=== PATIENT | male | born 1950 | race Caucasian/White ===

== ENCOUNTER 2023-04-21 17:07 | Observation (INO) | payer OTHER, SELFPAY ==
[2023-04-21 12:25] VITALS: BP 94/68
--- NOTE | 2023-04-21 13:31 | ED.GENMED ---
History of Present Illness
General
Chief Complaint: Weakness
Time Seen by Provider: 04/21/23 12:34
Travel History
Have you had any contact with someone who has COVID-19?: No
Do you have any symptoms of coronavirus? Fever > 100 degrees, chills, cough, shortness of breath, sore throat, loss of taste or smell, muscle aches, or headache?: No
History of Present Illness
History of Present Illness:
72-year-old male with history of insulin-dependent diabetes and dementia presents to the emergency department for evaluation of progressive weakness and lethargy over the past week. According to his sons his decline has been ongoing for the past
month but in the past 7 days he has been unable to stand or walk, has been sleeping on the floor. Patient offers no acute complaints. According to the his appetite has been otherwise normal.
Review of Systems
Review of Systems
Allergies reviewed?: Yes
All Other Systems: ROS reviewed and negative except as documented in HPI and ROS
Phy Exam
Physical Exam
Physical Exam:
GEN: Thin and cachectic male, no immediate distress
HEENT: Oral mucosa moist, no scleral icterus
Cardiac: Regular rate and rhythm
Lung: No respiratory distress, no tachypnea
MSK: No gross deformity. Stage I decubitus on the right greater trochanter
Skin: Good color, no pallor or jaundice, no rashes
Neuro: Alert, profoundly disoriented, follows commands
Psych: Calm, cooperative
Course
Orders/Labs/Results
Orders:
Orders
04/21/23 13:34
Lidocaine 2% [Lidocaine Uro-Jet 2%] [address] syringe [address]
04/21/23 13:45
Complete Blood Count/With Diff Urgent
Comprehensive Metabolic Panel Urgent
Glycohemoglobin (HgbA1c) Urgent
04/21/23 13:55
Urinalysis Reflex To Culture Urgent
Date Specimen was Collected: 04/21/23
Time Specimen was Collected: 13:55
Urine Microscopic Reflex Cult Urgent
Urine Culture Urgent
BOBBY Source: U
Specimen Description:
Date Specimen was Collected: 04/21/23
Time Specimen was Collected: 13:55
04/21/23 14:45
Fosfomycin [Monurol] 3 gm PO ONCE ONE
04/21/23 Dinner
Regular
At Your Request: Full Participation
Does patient need a safe tray?: Yes
04/21/23 15:32
Bedside Glucose- Treatment ONCE
04/21/23 16:32
Case Management Consult ONCE
Case Management Consult: Fdc Placement
04/21/23 16:51
Add On- LAB Routine
Tests Added?: hgba1c
Abnormal Lab Results
04/21/23 04/21/23 04/21/23
13:45 13:55 15:43
RBC 4.41 L 10^6/uL
(4.70-6.10)
Hct 36.5 L %
(39.0-52.0)
Absolute Monos (auto) 0.7 H 10^3/uL
(0.1-0.6)
Lymphocytes % 18.3 L %
(20.5-51.1)
Sodium 131 L mmol/L
(135-145)
Chloride 96 L mmol/L
(98-107)
Creatinine 0.4 L mg/dL
(0.7-1.3)
Ur Occult Blood Reflex Trace A
(Negative)
Urine Nitrite (Reflex) Positive A
(Negative)
Leukocyte Esterase Rfl 2+ A
(Negative)
Urine WBC (Reflex) 11-15 A /HPF
(0-5)
Urine Bacteria (Reflex) Moderate A
(Negative)
Urine Yeast Moderate A
(Negative)
POC Glucose 109 H mg/dl
(70-99)
04/21/23 13:45
04/21/23 13:45
Vital Signs
Initial and Last Documented VS:
Initial Vital Signs
Pulse Resp BP
90 16 94/68
04/21/23 12:25 04/21/23 12:25 04/21/23 12:25
Last Documented Vital Signs
Pulse Resp BP Pulse Ox
88 17 123/90 100
04/21/23 16:45 04/21/23 16:45 04/21/23 14:05 04/21/23 16:45
MDM/Problems Addressed
MDM/Problems Addressed:
Patient's presentation is most likely due to progressive cognitive decline in the setting of dementia. Straight cath urinalysis is suspicious for UTI. The patient was a difficult IV placement and essentially refused further IV access, given that
he is not septic he is suitable for oral management. After lengthy discussion with the family he is not suitable for discharge to home given his profound functional decline and lack of resources for the spouse or first-floor living capability.
Case management evaluated the patient and will assist with placement at the time he is medically discharge. Will admit to the hospitalist service for further management given his profound functional weakness
*Critical Care Note
Total Time (30-74mins, 75-104mins- exclusive of procedures): Not Applicable
ED Attending Note
-
Portions of this chart may have been created with voice recognition software.� Occasional wrong word or��sound alike� substitutions may have occurred due to the inherent limitations of voice recognition software.
Discharge Plan
Departure
Patient Disposition: Admit
Date of Disposition: 04/21/23
Time of Disposition: 16:26
Admit to: Med/Surg
Presentation/result/management discussed w/ accepting MD/DO: Hospitalist
Discharge Problem:
Urinary tract infection, Ambulatory dysfunction, Cognitive and behavioral changes
Prescriptions:
No Action
Theragen Tablet
1 tab PO DAILY
aspirin 81 mg Tablet,Delayed Release (Dr/Ec)
81 mg PO DAILY
insulin glargine [Lantus Solostar U-100 Insulin] 100 unit/mL (3 mL) Insulin Pen
10 unit SC HS
Prevagen
1 cap PO DAILY
insulin aspart U-100 [Novolog FlexPen U-100 Insulin] 100 unit/mL (3 mL) insulin pen
8 unit SC AC
metformin 1,000 mg Tablet
1,000 mg PO BID@0800,1700 Qty: 60 0RF
Referrals:
Salomon Diaz MD [Family Provider] -
Interventions
Interventions:
*Risk Screen - Suicide Last Done: 04/21/23 12:50
*General Assessment Last Done: 04/21/23 12:25
*Neglect/Abuse Screening Last Done: 04/21/23 12:50
ED- Fall Risk Assessment Last Done: 04/21/23 13:02
*ED COVID-19 Vaccine History Last Done: 04/21/23 12:25
ED- Cardiac Assessment Last Done: 04/21/23 14:04
ED- Neurological Assessment Last Done: 04/21/23 13:01
ED- Pulmonary Assessment Last Done: 04/21/23 13:02
[2023-04-21 13:55] LABS: % Basophils 0.5 % (0-2); % Eosinophils 1.4 % (0-6); % Immature Granulocytes 0.5 % (0-0.5); % Lymphocytes 18.3 % (20.5-51.1); % Monocytes 7.5 % (1.7-9.3); % Neutrophils 71.8 % (42.2-75.2); Absolute Eosinophils 0.1 10^3/uL (0-0.7); Absolute Lymphocytes 1.6 10^3/uL (1.2-3.4); Absolute Monocytes 0.7 10^3/uL (0.1-0.6); Absolute Neutrophils 6.2 10^3/uL (1.4-6.5); Hematocrit 36.5 % (39.0-52.0); Hemoglobin 13.1 g/dL (13.0-18.0); Mean Corp Hgb Conc. 35.9 g/dL (33.0-37.0); Mean Corpuscular Hgb 29.7 pg (27.0-31.0); Mean Corpuscular Volume 82.8 fL (80.0-94.0); Mean Platelet Volume 9.6 fL (7.4-10.4); Nucleated Red Blood Cells % 0 % (-); Platelet Count 393 10^3/uL (130-400); Red Blood Cell Count 4.41 10^6/uL (4.70-6.10); Red Cell Dist. Width 12.4 % (11.5-14.5); White Blood Cell Count 8.7 10^3/uL (4.8-10.8)
[2023-04-21 14:05] VITALS: BP 123/90
[2023-04-21 14:05] LABS: Urine Albumin Negative (Neg - Trace); Urine Bilirubin Negative (Negative); Urine Character Clear (Clear); Urine Color Yellow; Urine Glucose Negative (Negative); Urine Ketone Negative (Negative); Urine Leukocyte 2+ (Negative); Urine Nitrite Positive (Negative); Urine Occult Blood Trace (Negative); Urine Urobilinogen Negative (Neg - 1+)
[2023-04-21 14:10] LABS: ALT (SGPT) 31 U/L (0-50); AST (SGOT) 30 U/L (17-59); Albumin 3.8 g/dl (3.5-5.0); Alkaline Phosphatase 94 U/L (38-126); Blood Urea Nitrogen 9 mg/dl (9-20); Calcium 9.6 mg/dl (8.4-10.2); Carbon Dioxide 27 mmol/L (22-30); Chloride 96 mmol/L (98-107); Glucose 97 mg/dl (70-99); Potassium 4.2 mmol/L (3.5-5.1); Sodium 131 mmol/L (135-145); Total Bilirubin 0.5 mg/dl (0.2-1.3); eGFR > 60.00
[2023-04-21 14:47] LABS: Urine Yeast Moderate (Negative)
[2023-04-21 14:50] LABS: Urine Bacteria Moderate (Negative); Urine Red Blood Cell 0-2 /HPF (0-2)
[2023-04-21] MEDS: MONUROL 3 GM PO (14:57)
[2023-04-21 15:44] LABS: Glucose - Point of Care 109 mg/dl (70-99)
--- NOTE | 2023-04-21 16:28 | CM ---
Cm was consulted for discharge planning. CM met with patient, , daughter and sons in room. Patient lives with in a colonial style home. Patient does not have VN or a history of SNF. Patient is active with his PCP. As per daughter and ,
patient sleeps on the floor due to back pain and sleeps with him on the floor. Family has noticed that patient cannot get up from the floor and recently requires his two sons to pick him up off the floor and transport to ER. Patient's sleeps on
the first floor but has not had access to shower for some time as he no longer navigates the stairs. Patient's stated that she feels that he can be discharged home. CM advised that due to patient's weakness and history of deconditioning a home
discharge may not be safe. CM discussed risks of falling.
Patient, family and are in agreement with hospitalization and discharge planning. CM will await PT evaluation for further discharge planning efforts.
PLAN: home with VN vs. SNF.
--- NOTE | 2023-04-21 17:01 | HPS.HSE ---
Addendum entered and electronically signed by Preston Christopher DO 04/21/23 17:21:
Patient seen and examined and discussed with EBONY Reagan and I agree with her note.
Gen-awake, alert, confused, not oriented
HEENT-NC, AT, anicteric, clear oral mm
Neck-supple
CV-reg, no M, +S1/S2
Lungs-clear B/L
Abd-soft, NT, ND
Ext-no edema
Musculoskeletal-no cyanosis, clubbing
Skin-warm and dry
Neuro-grossly non-focal
Psych-calm, cooperative
Failure to thrive -due to progression of underlying dementia. Family states that he is gotten progressively weaker over the past few weeks, sleeping on the floor. Unable to get up on his own. Has developed decubital wounds. Consult wound care.
Family requesting placement. Case management aware.
Advanced dementia -likely Alzheimer's type. Rule out vascular dementia. Given the progression and failure to thrive, hospice should be considered. Will discuss with family.
History of stroke -CT head from April 2022 showed old 3 cm left occipital infarct. Moderate diffuse cortical atrophy with mild nonspecific white matter changes.
Hyponatremia -sodium 131. Possibly related to hypovolemia. Patient refused IV catheter placement in the emergency room.
DM2 without hyperglycemia -glucose 97 today. Would use low resistance insulin scale, resume metformin. Not a good long-term insulin candidate given his advanced dementia.
Pyuria -unclear if true UTI. Patient has no symptoms, but is also not reliable given his dementia. Emergency room administered a dose of fosfomycin. Urine culture sent.
DNR
Original Note:
Family Physician
-
Family Physician: Orlin Diaz
Chief Complaint
-
Weakness
History of Present Illness
Pt is a 72yo M w/ a PMH of DM-II and Dementia who is presenting to the ED c/o weakness. Patient is a limited historian and presents with his and two sons. The patient has become progressively more weak since he was diagnosed with dementia 2
years ago. The patient becomes agitated and combative with no specific triggers per sons and . The patient's advises that he is always hungry and will eat anything. She also advises that he sleeps on the floor as he's unable to get up the
stairs. Family is no longer able to care for patient at home.
Medical History
Past Medical History
Past Medical History: Reports Other
Additional Past Medical History:
Diabetes Mellitus, Type II
Past Surgical History: Reports None
Social History
Tobacco: Former Smoker (Quit about 2 years)
Living: With Family
Family History
Family History: Unable to Obtain
Allergies / Home Medications
Allergies reflects when Allergies were last updated in [employer].
Home Medications with original date entered in [employer]
Allergy/Medication List:
Allergies
Allergy/AdvReac Type Severity Reaction Status Date / Time
No Known Allergies Allergy Unverified 04/21/23 12:30
Home Medications
metformin 1,000 mg tablet 1,000 mg PO BID@0800,1700 Diabetes #60 tabs 04/20/22
Prevagen 1 cap PO DAILY 04/21/23
aspirin 81 mg tablet,delayed release 81 mg PO DAILY 04/21/23
insulin aspart U-100 100 unit/mL (3 mL) subcutaneous pen (Novolog FlexPen U-100 Insulin aspart) 8 unit SC AC Diabetes 04/21/23
insulin glargine 100 unit/mL (3 mL) subcutaneous pen (Lantus Solostar U-100 Insulin) 10 unit SC HS 04/21/23
therapeutic multivitamin 1 tab PO DAILY 04/21/23
Review of Systems
-
Unable to obtain full review of systems at this time due to: Dementia
Physical Exam
Vital Signs
Vital Signs
Pulse Resp BP Pulse Ox
88 17 123/90 100
04/21/23 16:45 04/21/23 16:45 04/21/23 14:05 04/21/23 16:45
Physical Exam
General: Comfortable, Conversant and Appears Chronically Ill
HEENT: Anicteric and Other (Mucous membranes are slightly dry)
Respiratory: Clear and Non Labored Respirations
Cardiac: S1/S2 and Regular Rhythm
GI: Soft and Non Tender
Musculoskeletal: No Clubbing and No Cyanosis
Skin: Warm and Dry
Neuro: Awake and Alert
Psych: Calm, Confused and Other (ED staffs notes patient became agitated when attempting to get blood work and place IV)
Laboratory Results
-
04/21/23 13:45
04/21/23 13:45
Laboratory Results
Total Bilirubin 0.5 mg/dl (0.2-1.3) 04/21/23 13:45
AST 30 U/L (17-59) 04/21/23 13:45
ALT 31 U/L (0-50) 04/21/23 13:45
Alkaline Phosphatase 94 U/L (38-126) 04/21/23 13:45
Data Reviewed
-
Lab Data: Labs Reviewed by me
Impression/Plan
-
Weakness, likely related to progression of illness
-Family is unable to take care of patient at home
-Consult PT/OT
-Consult Case Management for discharge planning/placement
Abnormal Urinalysis, possible UTI
-Patient received Fosfomycin in ED
-Await urine culture
Dementia, unknown type
-Monitor for mood/behavior changes during hospitalization
Diabetes Mellitus, Type II
-Hold insulin for now
-Continue metformin
-Monitor sugars if patient will allow. Coverage insulin ordered
DVT proph: SCDs
Code Status: DNR
[2023-04-21 17:20] VITALS: BP 122/79
[2023-04-21 17:54] LABS: Glucose - Point of Care 180 mg/dl (70-99)
--- NOTE | 2023-04-21 18:25 | PTCARENOTE ---
pt admitted to 2N from the ED. pt is agitated at times and aaox1. this nurse and nurse layo applied b/l heel foams, b/l knee foams to prevent skin breakdown. pt has a stage two on right hip and a stage 1 on buttock. see wound notes on admission for
proper charting in worklist. pt is grossly incontinent of urine and incontinent of bowel. agitation increased over last week as well as incontinence due to uti. 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
was walking. pt's states that he does well with finger foods but may need help with things that require utensils. this nurse help the patient eat pudding due to him placing his nose in the cup trying to feed himself. pt is on a bed alarm and
was placed in 2134 so that he is close to nursing station. pt has no IV access. sugar check noted a 180 sugar. pt has no trouble swallowing pills per pt's . son and are at the bedside at this time.
[2023-04-21 18:26] VITALS: BP 150/80
[2023-04-21 18:27] VITALS: BMI 21.8
[2023-04-21 22:17] LABS: Glucose - Point of Care 158 mg/dl (70-99)
[2023-04-21 23:35] VITALS: BP 162/86
[2023-04-22 07:30] VITALS: BP 106/69
[2023-04-22 09:18] LABS: Glucose - Point of Care 132 mg/dl (70-99)
[2023-04-22] MEDS: GLUCOPHAGE 1000 MG PO ×2 (09:22→17:27)
[2023-04-22] MEDS: NOVOLOG FLEXPEN-LOW RESISTANCE SC ×2 (09:22→17:27)
--- NOTE | 2023-04-22 09:43 | CM ---
Reviewed the chart notes and spoke with the patient and his son at the bedside. LOUISE letter provided and explained. The patient had no questions with regards to the letter.
Per son, family is interested in SNF/rehab prior to transitioning back to home. List is are NHs provided for review. Precert will be required. Awaiting PT/OT evaluation. CM continues to be available to patient/family and is monitoring medical
plan for needs at discharge.
Plan: Discharge to SNF/rehab once bed found and precert obtained.
--- NOTE | 2023-04-22 10:33 | W.PN.HOSP.TC ---
Today's Communication/Plan
-
TSH, B12, folic acid
Hemoglobin A1c
PT/OT
Discharge planning
Assessment / Plan
Assessment / Plan
Gen-awake, alert, NAD
HEENT-NC, AT, anicteric, clear oral mm
Neck-supple
CV-reg, no M, +S1/S2
Lungs-clear B/L
Abd-soft, NT, ND
Ext-no edema
Musculoskeletal-no cyanosis, clubbing
Skin-warm and dry
Neuro-grossly non-focal
Psych-calm, cooperative
Failure to thrive -due to progression of underlying dementia.� Family states that he is gotten progressively weaker over the past few weeks, sleeping on the floor.� Unable to get up on his own.� Has developed decubital wounds.� Consult wound care.
Family requesting placement.� Case management aware.
Advanced dementia -likely Alzheimer's type.� Rule out vascular dementia.� Given the progression and failure to thrive, hospice should be considered.� I mentioned to family at the bedside this morning regarding hospice, encouraged them to speak
further with PCP.
History of stroke -CT head from April 2022 showed old 3 cm left occipital infarct.� Moderate diffuse cortical atrophy with mild nonspecific white matter changes.
Hyponatremia -sodium 131.� Possibly related to hypovolemia.� Patient refused IV catheter placement in the emergency room.
DM2 without hyperglycemia -glucose 132 this morning.� Would use low resistance insulin scale, resume metformin.� Not a good long-term insulin candidate given his advanced dementia.
Pyuria -doubt UTI.� Patient has no symptoms, but is also not reliable given his dementia.� Emergency room administered a dose of fosfomycin.� Urine culture shows 50,000 CFU per mL Streptococcus species
DNR
Dispo - plan to discharge to SNF, likely by Monday. Case management and family aware.
Anticipated Discharge: 24 - 48 hours
Subjective/Interval History
-
Date of Service: April 22, 2023
Patient seen and examined. Family at the bedside. No complaints.
Objective Data
-
Vital Signs:
Vital Signs
Temp Pulse Resp BP Pulse Ox
97.2 F 80 16 106/69 97
04/22/23 07:30 04/22/23 07:30 04/22/23 07:30 04/22/23 07:30 04/22/23 07:30
I&O
04/21/23 04/22/23 04/23/23
06:59 06:59 06:59
Intake Total 180 / 180 720 / 720
Balance 180 / 180 720 / 720
Review of Systems
-
Unable to obtain full review of systems at this time due to: Dementia
History Source: Patient
All other systems: Reviewed and negative
[2023-04-22 10:48] VITALS: BP 139/65
[2023-04-22 11:00] VITALS: BP 139/65; PULSE 82
[2023-04-22] MEDS: TYLENOL 650 MG PO ×3 (11:01→22:50)
[2023-04-22 11:25] LABS: Glycohemoglobin (HgbA1c) 6.5 % (4.0-5.6)
[2023-04-22 12:53] LABS: Glucose - Point of Care 318 mg/dl (70-99)
[2023-04-22] MEDS: NOVOLOG FLEXPEN-LOW RESISTANCE 4 UNITS SC (13:08)
[2023-04-22 16:19] VITALS: BP 122/66
[2023-04-22 17:00] LABS: Glucose - Point of Care 107 mg/dl (70-99)
[2023-04-22] MEDS: NOVOLOG FLEXPEN 4 UNITS SC (17:27)
--- NOTE | 2023-04-22 18:26 | PTCARENOTE ---
pt had small episodes of agitation, cursing at staff, but not hitting, easily redirected. his posture was ridged, grimacing at times, bitting his fingers, per son he has a bad back and an old L5 fracture, unable to rate his pain or verbalize his
pain so non verbal pain scale was used to treat him. Does well with finger food, does not want to be helped with eating, wants to manage himself. Family at bedside.
[2023-04-22 22:26] LABS: Glucose - Point of Care 123 mg/dl (70-99)
[2023-04-22] MEDS: LANTUS 0.0500000000000000028 UNITS SC (22:29)
[2023-04-22 23:20] VITALS: BP 131/71
[2023-04-23] MEDS: TYLENOL 650 MG PO ×3 (03:38→17:23)
[2023-04-23 07:10] VITALS: BP 115/72
[2023-04-23 08:12] LABS: Glucose - Point of Care 116 mg/dl (70-99)
[2023-04-23] MEDS: NOVOLOG FLEXPEN-LOW RESISTANCE SC ×3 (09:24→17:14)
[2023-04-23] MEDS: GLUCOPHAGE 1000 MG PO ×2 (09:26→17:23)
[2023-04-23] MEDS: NOVOLOG FLEXPEN 4 UNITS SC ×3 (09:27→17:24)
--- NOTE | 2023-04-23 11:05 | W.PN.HOSP.TC ---
Today's Communication/Plan
-
Await placement
Assessment / Plan
Assessment / Plan
Gen-awake, alert, NAD
HEENT-NC, AT, anicteric, clear oral mm
Neck-supple
CV-reg, no M, +S1/S2
Lungs-clear B/L
Abd-soft, NT, ND
Ext-no edema
Musculoskeletal-no cyanosis, clubbing
Skin-warm and dry
Neuro-grossly non-focal
Psych-calm, cooperative
Failure to thrive -due to progression of underlying dementia.� Family states that he is gotten progressively weaker over the past few weeks, sleeping on the floor.� Unable to get up on his own.� Has developed decubital wounds.� Consult wound care.
Family requesting placement.� Case management aware.
Advanced dementia -likely Alzheimer's type.� Rule out vascular dementia.� Given the progression and failure to thrive, hospice should be considered.� I mentioned to family at the bedside this morning regarding hospice, encouraged them to speak
further with PCP.
History of stroke -CT head from April 2022 showed old 3 cm left occipital infarct.� Moderate diffuse cortical atrophy with mild nonspecific white matter changes.
Hyponatremia -sodium 131.� Possibly related to hypovolemia.� Patient refused IV catheter placement in the emergency room. TSH pending.
DM2 without hyperglycemia -glucose 116 this morning.� Would use low resistance insulin scale, resume metformin.� Not a good long-term insulin candidate given his advanced dementia. Currently on Lantus 5 units at bedtime, NovoLog 4 units AC.
Pyuria -doubt UTI.� Patient has no symptoms, but is also not reliable given his dementia.� Emergency room administered a dose of fosfomycin.� Urine culture shows 50,000 CFU per mL Streptococcus species
DNR
Dispo - plan to discharge to SNF, likely by Monday. Case management and family aware.
Anticipated Discharge: Within 24 hours
Subjective/Interval History
-
Date of Service: April 23, 2023
Patient seen and examined. at the bedside. No complaints.
Objective Data
-
Vital Signs:
Vital Signs
Temp Pulse Resp BP Pulse Ox
97.5 F 82 18 115/72 100
04/23/23 07:10 04/23/23 07:10 04/23/23 07:10 04/23/23 07:10 04/23/23 07:10
I&O
04/22/23 04/23/23 04/24/23
06:59 06:59 06:59
Intake Total 180 / 180 1560 / 1560
Balance 180 / 180 1560 / 1560
Review of Systems
-
Unable to obtain full review of systems at this time due to: Dementia
History Source: Patient
All other systems: Reviewed and negative
[2023-04-23 11:52] LABS: TSH 2.35 uIU/ml (0.47-4.68)
[2023-04-23 12:11] LABS: Vitamin B12 923 pg/ml (239-931)
[2023-04-23 12:31] LABS: Glucose - Point of Care 121 mg/dl (70-99)
[2023-04-23 15:00] VITALS: BP 124/61
[2023-04-23 17:11] LABS: Glucose - Point of Care 130 mg/dl (70-99)
--- NOTE | 2023-04-23 18:50 | W.PN.UPDATE ---
Update Note
Progress Note Update
Addendum
Nurse asked for medicine to help with agitation. Patient used Diazepam 10 mg at home in the past. I reached out to Dr. Christopher. WIll give one time dose 5 mg of Diazepam.
[2023-04-23] MEDS: VALIUM 5 MG PO (19:16)
--- NOTE | 2023-04-23 19:19 | PTCARENOTE ---
pt started with agitation after dinner, trying to climb out of bed, yelling at staff cursing, yelling at his family members as well, per family he used to take 10 mg of Diazepam unsure of why it was stopped, reached out to cross coverage and 5 mg of
Diazepam PO was ordered and given. Son at bedside and unable to calm down his father, pt has NKDA and no IV access.
[2023-04-23 21:19] LABS: Glucose - Point of Care 120 mg/dl (70-99)
[2023-04-23] MEDS: LANTUS 0.0500000000000000028 UNITS SC (21:36)
[2023-04-23 23:10] VITALS: BP 137/79
[2023-04-24 07:20] VITALS: BP 131/74
[2023-04-24 07:59] LABS: Glucose - Point of Care 96 mg/dl (70-99)
[2023-04-24] MEDS: NOVOLOG FLEXPEN-LOW RESISTANCE SC ×2 (08:22→16:24)
--- NOTE | 2023-04-24 09:30 | WOUNDNOTE ---
[facility] RN note: Patient admitted with weakness, failure to thrive, sleeping on floor d/t cannot climb the stairs. Patient's family cannot take care of him any longer. Patient is .
See H&P for complete history.
PMH: dementia, DM, skin cancer.
Wound Location and type/assessment: Patient admitted with: R hip healing stage 2 pressure injury. Resolving small stage 1 sacral pressure injury. L hip blanchable mild red. L buttocks with small red area. R lateral knee dry abrasion. L heel
blanchable red.
Appetite: good.
Pressure redistribution devices in place: [employer] Accumax. Patient does move in bed but needs assistance to completely turn in bed. He moves legs independently.
Plan: Patient incontinent of urine. Connie care given and patient turned with help from PCT Vijay. Silicone foam changed on R hip and sacrum. Silicone foam applied to L lateral knee. Protective foam applied to heels.
Will confirm orders with hospitalist and discussed with ROOSEVELT Steven.
Updated care plan and will follow as needed.
--- NOTE | 2023-04-24 09:32 | WOUNDNOTE ---
[facility] RN note: Patient admitted with weakness, failure to thrive, sleeping on floor d/t cannot climb the stairs. Patient's family cannot take care of him any longer. Patient is .
See H&P for complete history.
PMH: dementia, DM, skin cancer.
Wound Location and type/assessment: Patient admitted with: R hip healing stage 2 pressure injury. Resolving small stage 1 sacral pressure injury. L hip blanchable mild red. L buttocks with small red area. R lateral knee dry abrasion. L heel
blanchable red.
Appetite: good.
Pressure redistribution devices in place:
Plan:
Will confirm orders with hospitalist and update nurse.
Updated care plan and will follow as needed.
Note to case management of equipment requested for discharge:
Recommend follow up at wound care center upon discharge.
[2023-04-24] MEDS: GLUCOPHAGE 1000 MG PO ×2 (10:13→16:28)
[2023-04-24] MEDS: NOVOLOG FLEXPEN 4 UNITS SC ×3 (10:14→16:28)
--- NOTE | 2023-04-24 10:57 | W.PN.HOSP.TC ---
Today's Communication/Plan
-
Monitor sugars
Psych eval
Ongoing placement
Assessment / Plan
Assessment / Plan
Gen-awake, NAD
HEENT-NC, AT, anicteric, clear oral mucosa,
Neck-supple
CV-reg, no M, +S1/S2
Lungs-clear B/L
Abd-soft, NT, ND
Ext-no edema
Musculoskeletal-no cyanosis, clubbing
Skin-warm and dry
Neuro-grossly non-focal, apparent dementia
Psych-calm, cooperative
Failure to thrive -due to progression of underlying dementia.� Family states that he is gotten progressively weaker over the past few weeks, sleeping on the floor.� Unable to get up on his own.� Has developed decubital wounds.� Consult wound care.
Family requesting placement.� Case management aware.
Advanced dementia -likely Alzheimer's type.� Rule out vascular dementia.� Intermittent agitation with behavioral disturbances. Psych consulted.
History of stroke -CT head from April 2022 showed old 3 cm left occipital infarct.� Moderate diffuse cortical atrophy with mild nonspecific white matter changes.
Hyponatremia -sodium 131.� Possibly related to hypovolemia.� Patient refused IV catheter placement in the emergency room. TSH normal.
DM2 without hyperglycemia -glucose 96 this morning.� Would use low resistance insulin scale, resume metformin.� Not a good long-term insulin candidate given his advanced dementia. Currently on Lantus 5 units at bedtime, NovoLog 4 units AC.
Pyuria -doubt UTI.� Patient has no symptoms, but is also not reliable given his dementia.� Emergency room administered a dose of fosfomycin.� Urine culture shows 50,000 CFU per mL Streptococcus species
DNR
Dispo -await placement to SNF. Psych evaluation.
Anticipated Discharge: Within 24 hours
Subjective/Interval History
-
Date of Service: April 24, 2023
Remains with intermittent agitation
yesterday required diazepam
No overnight events
Objective Data
-
Vital Signs:
Vital Signs
Temp Pulse Resp BP Pulse Ox
97.9 F 87 16 131/74 100
04/24/23 07:20 04/24/23 07:20 04/24/23 07:20 04/24/23 07:20 04/24/23 07:20
I&O
04/23/23 04/24/23 04/25/23
06:59 06:59 06:59
Intake Total 1560 / 1560 1440 / 1440
Balance 1560 / 1560 1440 / 1440
[2023-04-24 11:33] LABS: Folate > 20.0 ng/ml (2.76-20)
[2023-04-24 12:26] VITALS: BP 132/71; PULSE 95
[2023-04-24 12:34] LABS: Glucose - Point of Care 216 mg/dl (70-99)
[2023-04-24] MEDS: NOVOLOG FLEXPEN-LOW RESISTANCE 2 UNITS SC (13:34)
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
[2023-04-24 15:20] VITALS: BP 162/99
--- NOTE | 2023-04-24 16:09 | CM ---
Reviewed the chart notes and spoke with the spouse and sons at the bedside. Updated that [facility] and [facility] with no beds. [facility] reviewing. CM continues to be available to patient/family and is monitoring medical plan for needs at
discharge.
Plan: Discharge to SNF once bed found and precert obtained. May need to send more referrals.
[2023-04-24 16:21] LABS: Glucose - Point of Care 149 mg/dl (70-99)
[2023-04-24] MEDS: VALIUM 5 MG PO (17:24)
[2023-04-24] MEDS: ATIVAN 0.5 MG IV (18:36)
[2023-04-24] MEDS: NSS (PRESERVATIVE FREE) 0.25 ML IV (18:37)
[2023-04-24 22:17] LABS: Glucose - Point of Care 89 mg/dl (70-99)
[2023-04-24] MEDS: LANTUS 0.0500000000000000028 UNITS SC (22:17)
[2023-04-24 23:31] VITALS: BP 137/79
[2023-04-25 07:05] LABS: Glucose - Point of Care 93 mg/dl (70-99)
[2023-04-25 08:28] VITALS: BP 109/57
[2023-04-25] MEDS: NOVOLOG FLEXPEN-LOW RESISTANCE SC ×3 (09:42→17:15)
[2023-04-25] MEDS: NOVOLOG FLEXPEN 4 UNITS SC ×3 (09:44→17:15)
[2023-04-25] MEDS: GLUCOPHAGE 1000 MG PO ×2 (09:45→17:16)
[2023-04-25] MEDS: VALIUM 5 MG PO (09:46)
--- NOTE | 2023-04-25 10:28 | W.PN.HOSP.TC ---
Today's Communication/Plan
-
Valium bid
monitor mentation
await placement.
Assessment / Plan
Assessment / Plan
Gen-awake, NAD
HEENT-NC, AT, anicteric, clear oral mucosa,
Neck-supple
CV-reg, no M, +S1/S2
Lungs-clear B/L
Abd-soft, NT, ND
Ext-no edema
Musculoskeletal-no cyanosis, clubbing
Skin-warm and dry
Neuro-grossly non-focal, apparent dementia
Psych-calm, cooperative
Failure to thrive -due to progression of underlying dementia.� Family states that he is gotten progressively weaker over the past few weeks, sleeping on the floor.� Unable to get up on his own.� Has developed decubital wounds.� Consult wound care.
Family requesting placement.� Case management aware.
Advanced dementia -likely Alzheimer's vs. vascular dementia.� Intermittent agitation with behavioral disturbances. Psych consulted. Valium 5mg BID started.
History of stroke -CT head from April 2022 showed old 3 cm left occipital infarct.� Moderate diffuse cortical atrophy with mild nonspecific white matter changes.
Hyponatremia -sodium 131.� Possibly related to hypovolemia.� TSH normal.
DM2 without hyperglycemia -glucose 93 this morning.� Would use low resistance insulin scale, resume metformin.� Currently on Lantus 5 units at bedtime, NovoLog 4 units AC.
Pyuria -doubt UTI.� Patient has no symptoms, but is also not reliable given his dementia.� Emergency room administered a dose of fosfomycin.� Urine culture shows 50,000 CFU per mL Streptococcus species
R hip stage PI-POA
Small stage 1 sacral PI-POA
DNR
d/w with son at bedside.
Dispo -await placement to SNF.
Anticipated Discharge: Today
Subjective/Interval History
-
Date of Service: April 25, 2023
calm this morning
son at bedside agrees
finished breakfast
Objective Data
-
Vital Signs:
Vital Signs
Temp Pulse Resp BP Pulse Ox
94.5 F L 75 16 109/57 100
04/25/23 08:28 04/25/23 08:28 04/25/23 08:28 04/25/23 08:28 04/25/23 08:28
I&O
04/24/23 04/25/23 04/26/23
06:59 06:59 06:59
Intake Total 1440 / 1440 1100 / 1100
Balance 1440 / 1440 1100 / 1100
[2023-04-25] MEDS: ASPIR LOW (ENTERIC COATED) 81 MG PO (11:16)
[2023-04-25 11:26] LABS: Glucose - Point of Care 134 mg/dl (70-99)
--- NOTE | 2023-04-25 13:37 | W.PN.UPDATE ---
Update Note
Progress Note Update
Pt seen, with son present, reviewed with nursing staff. Pt was agitated last pm, trying to get out of bed, was given Ativan 0.5 mg IV. Pt sleepy off an on, awake and calm today (early afternoon). Pt eating okay. Pt is not ambulating
independently.
Imp: � Dementia, progressive, likely vascular.� Possible delirium; unclear etiology for significant decline a couple weeks prior to admission
Rec:� Will increase Valium to 5 mg AM and 10 mg PM; family prefers to hold antipsychotic med if possible
�� � Will follow
--- NOTE | 2023-04-25 14:40 | CM ---
CM reviewed pt with Dr Boyce- medically ready for dc
Agitation overnight requiring IV Ativan though
Pt denied at [facility], [facility], and [facility]
Lengthy conversation with [facility] SNF
Referral pending- will not consider at another [facility] as [facility] only facility with multiple levels
Concern noted with elopement risk at [facility] SNFs
Notes [employer] will need to provide one-time contract if pt accepted
Bedside meeting with son
Update provided on outcome of SNF referrals
Encouraged broad net of additional referrals
Son open to SNFs between [facility] through [facility]
Broad net of additional SNF referral sent via [facility]
Of note, PT/OT following however pt minimally participating and cooperating
Son aware if auth denied, pt will need to be private pay or MA pending
Acknowledged understanding
Discharge Disposition- SNF
[2023-04-25] MEDS: ATIVAN 0.5 MG IV (14:45)
[2023-04-25] MEDS: NSS (PRESERVATIVE FREE) 0.25 ML IV (14:46)
[2023-04-25 15:44] VITALS: BP 143/108
[2023-04-25] MEDS: ZYPREXA ZYDIS (ORALLY DISINTEGRATING) 2.5 MG PO (16:11)
[2023-04-25 16:51] LABS: Glucose - Point of Care 130 mg/dl (70-99)
[2023-04-25] MEDS: VALIUM 10 MG PO (19:44)
[2023-04-25 21:45] LABS: Glucose - Point of Care 107 mg/dl (70-99)
[2023-04-25] MEDS: LANTUS 0.0500000000000000028 UNITS SC (21:53)
[2023-04-25 23:19] VITALS: BP 123/88
[2023-04-26 07:14] LABS: Glucose - Point of Care 107 mg/dl (70-99)
[2023-04-26 07:50] VITALS: BP 122/71
[2023-04-26] MEDS: GLUCOPHAGE 1000 MG PO ×2 (07:54→16:28)
[2023-04-26] MEDS: ASPIR LOW (ENTERIC COATED) 81 MG PO (07:55)
[2023-04-26] MEDS: VALIUM 5 MG PO ×3 (07:55→23:08)
[2023-04-26] MEDS: THERAGRAN 1 TABLET PO (07:55)
[2023-04-26] MEDS: NOVOLOG FLEXPEN 4 UNITS SC ×3 (08:37→17:32)
[2023-04-26] MEDS: NOVOLOG FLEXPEN-LOW RESISTANCE SC ×3 (08:37→17:05)
[2023-04-26] MEDS: ZYPREXA ZYDIS (ORALLY DISINTEGRATING) 2.5 MG PO (08:38)
[2023-04-26 09:39] LABS: Blood Urea Nitrogen 11 mg/dl (9-20); Calcium 9.9 mg/dl (8.4-10.2); Carbon Dioxide 29 mmol/L (22-30); Chloride 92 mmol/L (98-107); Estimated Creatinine Clearance 121 ml/min; Glucose 114 mg/dl (70-99); Potassium 4.3 mmol/L (3.5-5.1); Sodium 130 mmol/L (135-145); eGFR > 60.00
--- NOTE | 2023-04-26 10:04 | W.PN.HOSP.TC ---
Today's Communication/Plan
-
IVF if tolerates it
Psych recs
await placement
Assessment / Plan
Assessment / Plan
Gen-awake, NAD
HEENT-NC, AT, anicteric, clear oral mucosa,
Neck-supple
CV-reg, no M, +S1/S2
Lungs-clear B/L
Abd-soft, NT, ND
Ext-no edema
Musculoskeletal-no cyanosis, clubbing
Skin-warm and dry
Neuro-grossly non-focal, apparent dementia
Psych-calm, cooperative
Failure to thrive -due to progression of underlying dementia.� Family states that he is gotten progressively weaker over the past few weeks, sleeping on the floor.� Unable to get up on his own.� Has developed decubital wounds.� Consult wound care.
Family requesting placement.� Case management aware.
Advanced dementia -likely Alzheimer's vs. vascular dementia.� Intermittent agitation with behavioral disturbances. Psych consulted. Valium 5mg/10mg standing and zyprexa 2.5mg bid prn started. may need further adjustment. Psych recs.
History of stroke -CT head from April 2022 showed old 3 cm left occipital infarct.� Moderate diffuse cortical atrophy with mild nonspecific white matter changes.
Hyponatremia -sodium 130.� Gentl IVF ordered. Possibly related to hypovolemia.� TSH normal.
DM2 without hyperglycemia -glucose 107 this morning.� Would use low resistance insulin scale, resume metformin.� Currently on Lantus 5 units at bedtime, NovoLog 4 units AC.
Pyuria -doubt UTI.� Patient has no symptoms, but is also not reliable given his dementia.� Emergency room administered a dose of fosfomycin.� Urine culture shows 50,000 CFU per mL Streptococcus species
R hip stage PI-POA
Small stage 1 sacral PI-POA
DNR
d/w with son at bedside on 04/25
Dispo -await placement to SNF.
Anticipated Discharge: Today
Subjective/Interval History
-
Date of Service: April 26, 2023
Remains with intermittent agitation.
Objective Data
-
Labs:
Laboratory Results
04/26/23
07:55
Sodium 130 L
Potassium 4.3
Chloride 92 L
Carbon Dioxide 29
BUN 11
Creatinine 0.4 L
Glucose 114 H
Calcium 9.9
Vital Signs:
Vital Signs
Temp Pulse Resp BP Pulse Ox
97.4 F 91 14 122/71 100
04/26/23 07:50 04/26/23 07:50 04/26/23 07:50 04/26/23 07:50 04/26/23 08:30
I&O
04/25/23 04/26/23 04/27/23
06:59 06:59 06:59
Intake Total 1100 / 1100 480 / 480
Balance 1100 / 1100 480 / 480
[2023-04-26 11:20] LABS: Glucose - Point of Care 134 mg/dl (70-99)
[2023-04-26] MEDS: NSS 500 IV (11:27)
--- NOTE | 2023-04-26 13:09 | W.PN.UPDATE ---
Update Note
Progress Note Update
patient seen chart reviewed. discussed w nursing. at bedside. the patient has periods of agitation and has required zyprexa as a prn as well as the valium he is prescribed as a scheduled dose. nursing reported minimal response from the prn of
zyprexa 2.5 mg which has now been increased to 5 mg. the patient was pleasant when i saw him. does feel he has improved since being rx for uti in the er. placement is being sought. will follow
--- NOTE | 2023-04-26 15:23 | CM ---
Reviewed the chart notes and spoke with [facility] Admissions Liaison with [facility]. Per Josie, the patient would have a bed a [facility], but would need a one time contract with [facility] as they are [id number]. PT/OT would be needed for
auth. Yesterday patient was agitated and could not participate in PT. CM continues to be available to patient/family and is monitoring medical plan for needs at discharge.
Plan: Discharge to SNF once able to participate in therapy and auth obtained.
[2023-04-26 15:35] VITALS: BP 125/73
--- NOTE | 2023-04-26 16:20 | W.PN.UPDATE ---
Update Note
Progress Note Update
patient has had periods of agitation throughout the day unrelieved by zyprexa and valium. zyprexa can be rather anticholinergic and could be aggravating his sx . it is clearly not helping. will dc and order risperdal m tabs one mg bid and a prn of
o.5 mg. will leave valium prn 5 mg q 8h. will reassess in am
[2023-04-26 16:23] VITALS: BP 100/72; PULSE 102; O2SAT 100
[2023-04-26] MEDS: RISPERDAL M-TAB (ORALLY DISINTEGRATING) 0.5 MG PO (16:28)
--- NOTE | 2023-04-26 16:45 | PTCARENOTE ---
Pt increasingly agitated, yelling at staff/ and getting out of bed/chair and pulling at IV despite AM Valium 5mg PO and PRN Zyprexa 2.5mg PO. MD made aware, ordered another dose of Valium 5mg with no relief. Pt was ambulated around unit,
changed and still agitated and aggressive with staff. MD made aware. Additional Risperidone 0.5mg sublingual ordered and given per MD order.
[2023-04-26 16:59] LABS: Glucose - Point of Care 105 mg/dl (70-99)
--- NOTE | 2023-04-26 17:58 | W.PN.UPDATE ---
Update Note
Progress Note Update
Patient with severe agitation and being aggressive. Patient did receive medication of Risperdal and Valium earlier without much improvement. Zyprexa was discontinued. Patient continues to remain agitated. Unable to be redirected. Ordered IV
Ativan and monitor closely. Fall precautions recommended. Patient tolerating diet and finishing 100% of meals. Will DC IV fluids.
Discussed plan with RN.
[2023-04-26] MEDS: ATIVAN 1 MG IV (18:00)
[2023-04-26] MEDS: NSS (PRESERVATIVE FREE) 0.5 ML IV (18:00)
--- NOTE | 2023-04-26 18:25 | PTCARENOTE ---
Pt was wheeled out to nurses station after getting out of bed too often for safety. Risperidone 0.5mg sublingual given, no relief in agitation. Pt wheeled back into room after repeatedly screaming profanities, swinging at staff, and slamming fists
into bedside table. MD made aware, came to assess pt at the bedside and ordered 1mg Ativan IV, medication given, pt resting comfortably in bed at this time.
[2023-04-26] MEDS: VALIUM 10 MG PO (20:42)
[2023-04-26] MEDS: RISPERDAL M-TAB (ORALLY DISINTEGRATING) 1 MG PO (20:42)
[2023-04-26 22:00] LABS: Glucose - Point of Care 130 mg/dl (70-99)
[2023-04-26] MEDS: LANTUS 0.0500000000000000028 UNITS SC (22:33)
[2023-04-26 23:25] VITALS: BP 117/69
[2023-04-27] MEDS: VALIUM 5 MG PO ×2 (05:45→08:38)
[2023-04-27 06:37] LABS: Blood Urea Nitrogen 8 mg/dl (9-20); Calcium 9.6 mg/dl (8.4-10.2); Carbon Dioxide 32 mmol/L (22-30); Chloride 95 mmol/L (98-107); Estimated Creatinine Clearance 121 ml/min; Glucose 139 mg/dl (70-99); Potassium 4.2 mmol/L (3.5-5.1); Sodium 132 mmol/L (135-145); eGFR > 60.00
[2023-04-27] MEDS: THERAGRAN 1 TABLET PO (08:37)
[2023-04-27] MEDS: GLUCOPHAGE 1000 MG PO (08:37)
[2023-04-27] MEDS: ASPIR LOW (ENTERIC COATED) 81 MG PO (08:38)
[2023-04-27] MEDS: RISPERDAL M-TAB (ORALLY DISINTEGRATING) 1 MG PO ×2 (08:38→19:44)
[2023-04-27 08:41] LABS: Glucose - Point of Care 128 mg/dl (70-99)
[2023-04-27] MEDS: NOVOLOG FLEXPEN-LOW RESISTANCE SC ×3 (08:42→18:12)
[2023-04-27] MEDS: NOVOLOG FLEXPEN 4 UNITS SC ×3 (08:42→18:14)
[2023-04-27 08:46] VITALS: BP 124/80
--- NOTE | 2023-04-27 10:26 | W.PN.HOSP.TC ---
Today's Communication/Plan
-
Psych recs
Trend poc
Assessment / Plan
Assessment / Plan
Gen-awake, NAD
HEENT-NC, AT, anicteric, clear oral mucosa,
Neck-supple
CV-reg, no M, +S1/S2
Lungs-clear B/L
Abd-soft, NT, ND
Ext-no edema
Musculoskeletal-no cyanosis, clubbing
Skin-warm and dry
Neuro-grossly non-focal, apparent dementia
Psych-calm, cooperative
Failure to thrive -due to progression of underlying dementia.� Family states that he is gotten progressively weaker over the past few weeks, sleeping on the floor.� Unable to get up on his own.� Has developed decubital wounds.� Consult wound care.
Family requesting placement.� Case management aware.
Advanced dementia -likely Alzheimer's vs. vascular dementia.� Intermittent agitation with behavioral disturbances. Psych consulted. Valium 5mg/10mg standing and zyprexa 2.5mg bid prn started. may need further adjustment. Psych recs.
History of stroke -CT head from April 2022 showed old 3 cm left occipital infarct.� Moderate diffuse cortical atrophy with mild nonspecific white matter changes.
Hyponatremia -sodium 132 s/p gentle IVF. .� Possibly related to hypovolemia.� TSH normal.
DM2 without hyperglycemia -glucose 128 this morning.� Would use low resistance insulin scale, resume metformin.� Currently on Lantus 5 units at bedtime, NovoLog 4 units AC.
Pyuria -doubt UTI.� Patient has no symptoms, but is also not reliable given his dementia.� Emergency room administered a dose of fosfomycin.� Urine culture shows 50,000 CFU per mL Streptococcus species
R hip stage PI-POA
Small stage 1 sacral PI-POA
DNR
d/w with son at bedside on 04/25
Dispo -await placement to SNF.
Anticipated Discharge: Within 24 hours
Subjective/Interval History
-
Date of Service: April 27, 2023
Finished complete breakfast
Objective Data
-
Labs:
Laboratory Results
04/27/23
05:40
Sodium 132 L
Potassium 4.2
Chloride 95 L
Carbon Dioxide 32 H
BUN 8 L
Creatinine 0.5 L
Glucose 139 H
Calcium 9.6
Vital Signs:
Vital Signs
Temp Pulse Resp BP Pulse Ox
97.0 F 83 14 124/80 100
04/27/23 08:46 04/27/23 08:46 04/27/23 08:46 04/27/23 08:46 04/27/23 08:46
I&O
04/26/23 04/27/23 04/28/23
06:59 06:59 06:59
Intake Total 480 / 480 2320 / 2320
Balance 480 / 480 2320 / 2320
[2023-04-27 12:27] LABS: Glucose - Point of Care 132 mg/dl (70-99)
--- NOTE | 2023-04-27 13:01 | W.PN.UPDATE ---
Update Note
Progress Note Update
patient seen chart reviewed. spoke with nursing. son was present at bedside as was who arrived as we were speaking. patient struggled through yesterday afternoon and evening requiring prns of valium and ativan which was at one point given IV.
nursing feels ativan has been more helpful than valium. son reports that his father has taken valium for many years as well as opiates for pain relief. he apparently has struggled with spinal issues but never wanted any surgical treatment. son
also asked a questions about whether the use of bzp's and opiates may have accelerated his father developing dementia. son also noted father retired at a relatively young age and had little to fill his daytime hours. son asked if we had checked b12
and folate as he had been reading about the impact of vitamin deficiencies. we had checked them this admit and tsh was also normal. . at this point would continue risperdal as is. would change valium to ativan standing dose to replace standing dose
of valium which has a faster onset of action (although shorter off set) which may be why nursing feels it is more helpful. ordered ativan one mg po tid. there is a prn of risperdal as well o.5 mg. spoke with case resource manager as well. she is pursuing
nursing facilities but need a 24 hour wait after iv ativan. will follow
[2023-04-27 13:31] VITALS: BP 112/70; PULSE 100
--- NOTE | 2023-04-27 15:04 | CM ---
Reviewed the chart notes and spoke with the patient and his spouse at the bedside. [facility] will to accept the patient. Auth started for 04/28/2023 with [facility] ([phone]); Clinicals faxed to([phone]).
Pended # [id number]; Ref # [id number]
[facility] NPI# [id number]; [facility] NPI# [id number].
CM continues to be available to patient/family and is monitoring medical plan for needs at discharge.
Plan: Discharge to [facility] once auth obtained.
[2023-04-27] MEDS: ATIVAN PO (17:32)
[2023-04-27 18:00] VITALS: BP 110/77
[2023-04-27 18:10] LABS: Glucose - Point of Care 148 mg/dl (70-99)
[2023-04-27] MEDS: GLUCOPHAGE PO ×2 (18:14→18:23)
[2023-04-27] MEDS: TYLENOL 650 MG PO (20:26)
[2023-04-27] MEDS: ATIVAN 1 MG PO (21:01)
[2023-04-27 21:53] LABS: Glucose - Point of Care 170 mg/dl (70-99)
[2023-04-27] MEDS: LANTUS 0.0500000000000000028 UNITS SC (22:03)
[2023-04-27 23:26] VITALS: BP 111/66
[2023-04-28] MEDS: RISPERDAL M-TAB (ORALLY DISINTEGRATING) 0.5 MG PO ×2 (00:59→12:21)
[2023-04-28] MEDS: TYLENOL 650 MG PO ×3 (00:59→21:53)
[2023-04-28] MEDS: NSS (PRESERVATIVE FREE) 0.25 ML IV (01:56)
[2023-04-28] MEDS: ATIVAN 0.5 MG IV (01:57)
[2023-04-28] MEDS: GLUCOPHAGE 1000 MG PO ×2 (08:02→17:29)
[2023-04-28] MEDS: RISPERDAL M-TAB (ORALLY DISINTEGRATING) 1 MG PO ×2 (08:02→19:43)
[2023-04-28] MEDS: ATIVAN 1 MG PO ×3 (08:02→21:09)
[2023-04-28] MEDS: ASPIR LOW (ENTERIC COATED) 81 MG PO (08:02)
[2023-04-28] MEDS: NOVOLOG FLEXPEN 4 UNITS SC ×3 (08:05→17:28)
[2023-04-28] MEDS: NOVOLOG FLEXPEN-LOW RESISTANCE SC ×3 (08:06→17:28)
[2023-04-28 08:07] LABS: Glucose - Point of Care 136 mg/dl (70-99)
[2023-04-28 08:15] VITALS: BP 124/75
[2023-04-28] MEDS: THERAGRAN PO (10:48)
--- NOTE | 2023-04-28 11:13 | W.PN.HOSP.TC ---
Today's Communication/Plan
-
await placement
psych recs
Assessment / Plan
Assessment / Plan
Gen-awake, NAD
HEENT-NC, AT, anicteric, clear oral mucosa,
Neck-supple
CV-reg, no M, +S1/S2
Lungs-clear B/L
Abd-soft, NT, ND
Ext-no edema
Musculoskeletal-no cyanosis, clubbing
Skin-warm and dry
Neuro-grossly non-focal, apparent dementia
Psych-calm, cooperative
Failure to thrive -due to progression of underlying dementia.� Family states that he is gotten progressively weaker over the past few weeks, sleeping on the floor.� Unable to get up on his own.� Has developed decubital wounds.� Consult wound care.
Family requesting placement.� Case management aware.
Advanced dementia -likely Alzheimer's vs. vascular dementia.� Intermittent agitation with behavioral disturbances. Psych consulted. Valium stopped and started on ativan 1mg TID. Risperdal 1mg BID and Risperdal 0.5mg TID PRN. may need further
adjustment. Psych recs.
History of stroke -CT head from April 2022 showed old 3 cm left occipital infarct.� Moderate diffuse cortical atrophy with mild nonspecific white matter changes.
Hyponatremia -sodium 136 s/p gentle IVF. .� Possibly related to hypovolemia.� TSH normal.
DM2 without hyperglycemia -glucose 136 this morning.� Would use low resistance insulin scale, resume metformin.� Currently on Lantus 5 units at bedtime, NovoLog 4 units AC.
Pyuria -doubt UTI.� Patient has no symptoms, but is also not reliable given his dementia.� Emergency room administered a dose of fosfomycin.� Urine culture shows 50,000 CFU per mL Streptococcus species
R hip stage PI-POA
Small stage 1 sacral PI-POA
DNR
d/w with son at bedside on 04/25
Dispo -await placement to SNF.
Anticipated Discharge: Today
Subjective/Interval History
-
Date of Service: April 28, 2023
calm this morning
Objective Data
-
Vital Signs:
Vital Signs
Temp Pulse Resp BP Pulse Ox
97.3 F 88 18 124/75 100
04/28/23 08:15 04/28/23 08:15 04/28/23 08:15 04/28/23 08:15 04/28/23 08:15
I&O
04/27/23 04/28/23 04/29/23
06:59 06:59 06:59
Intake Total 2320 / 2320 1320 / 1320
Balance 2320 / 2320 1320 / 1320
--- NOTE | 2023-04-28 11:38 | W.PN.UPDATE ---
Update Note
Progress Note Update
patient seen chart reviewed. spoke with nursing. the patient had episodes of agitation over the night requiring prns of both ativan and risperdal. he is currently quietly resting in bed. for now did not make any med changes. only recently switched
to risperdal and ativan and it may take some time for this to equilibrate. would see how he does over the next 24 hours. consider increase in risperdal...i am not so keen on increase in ativan as he already is taking 3 mg daily. also concerned re
akathisia if we increase risperdal. adding depakote may be a possibility that should be considered. psych will follow
[2023-04-28 11:58] LABS: Glucose - Point of Care 104 mg/dl (70-99)
[2023-04-28] MEDS: NOVOLOG FLEXPEN SC (12:14)
--- NOTE | 2023-04-28 14:18 | CM ---
Addendum entered by Lynnette Scott RN 04/28/23 16:15:
User Support Specialist for [facility]:
Liam Duval

E-mail: [email or web address]
NPI# [id number]
Tax ID #[id number]
All information was provided to [facility] manufacturer's representative Shaneka ([phone], option 3). [facility] will send contract to [facility] for review and signature.
Addendum entered by Lynnette Scott RN 04/28/23 14:22:
Reference # [id number].
Original Note:
Reviewed the chart notes. Received call from Shaneka with [facility] regarding auth. Approved for [facility], but needs a one time contract for placement. [facility] Spoke with [facility] Admissions liaison regarding needing name of person signing
contract, their phone number, their fax number, their e-mail, [employer] Tax ID number and NPI number. Josie checking and will get back to . After all received call Shaneka with [employer] ([phone], option 3) and provide information to her.
Plan: Discharge to [facility] once one time contract signed.
[2023-04-28 16:26] VITALS: BP 141/74
[2023-04-28 17:14] LABS: Glucose - Point of Care 108 mg/dl (70-99)
[2023-04-28 21:32] LABS: Glucose - Point of Care 95 mg/dl (70-99)
[2023-04-28] MEDS: LANTUS 0.0500000000000000028 UNITS SC (21:53)
[2023-04-28 23:39] VITALS: BP 84/36
[2023-04-29 00:01] VITALS: BP 136/72
[2023-04-29 07:45] VITALS: BP 92/51
[2023-04-29 09:16] LABS: Glucose - Point of Care 126 mg/dl (70-99)
[2023-04-29] MEDS: NOVOLOG FLEXPEN-LOW RESISTANCE SC ×2 (09:20→17:09)
[2023-04-29] MEDS: ATIVAN 1 MG PO ×3 (09:21→22:26)
[2023-04-29] MEDS: RISPERDAL M-TAB (ORALLY DISINTEGRATING) 1 MG PO ×2 (09:21→22:26)
[2023-04-29] MEDS: ASPIR LOW (ENTERIC COATED) 81 MG PO (09:21)
[2023-04-29] MEDS: THERAGRAN 1 TABLET PO (09:21)
[2023-04-29] MEDS: GLUCOPHAGE 1000 MG PO ×2 (09:21→17:28)
[2023-04-29] MEDS: NOVOLOG FLEXPEN 4 UNITS SC ×3 (09:22→17:28)
--- NOTE | 2023-04-29 10:37 | W.PN.HOSP.TC ---
Today's Communication/Plan
-
await placement
monitor behavior
Assessment / Plan
Assessment / Plan
Gen-awake, NAD
HEENT-NC, AT, anicteric, clear oral mucosa,
Neck-supple
CV-reg, no M, +S1/S2
Lungs-clear B/L
Abd-soft, NT, ND
Ext-no edema
Musculoskeletal-no cyanosis, clubbing
Skin-warm and dry
Neuro-grossly non-focal, apparent dementia
Psych-calm, cooperative
Failure to thrive -due to progression of underlying dementia.� Family states that he is gotten progressively weaker over the past few weeks, sleeping on the floor.� Unable to get up on his own.� Has developed decubital wounds.� Consult wound care.
Family requesting placement.� Case management aware.
Advanced dementia -likely Alzheimer's vs. vascular dementia.� Intermittent agitation with behavioral disturbances. Psych consulted. Valium stopped and started on ativan 1mg TID. Risperdal 1mg BID and Risperdal 0.5mg TID PRN. Regimen seems to
helping. Psych recs.
History of stroke -CT head from April 2022 showed old 3 cm left occipital infarct.� Moderate diffuse cortical atrophy with mild nonspecific white matter changes.
Hyponatremia -sodium 136 s/p gentle IVF. .� Possibly related to hypovolemia.� TSH normal.
DM2 without hyperglycemia -glucose 126 this morning.� Would use low resistance insulin scale, resume metformin.� Currently on Lantus 5 units at bedtime, NovoLog 4 units AC.
Pyuria -doubt UTI.� Patient has no symptoms, but is also not reliable given his dementia.� Emergency room administered a dose of fosfomycin.� Urine culture shows 50,000 CFU per mL Streptococcus species
R hip stage PI-POA
Small stage 1 sacral PI-POA
DNR
d/w with son at bedside on 04/25
Dispo -await placement to SNF. Medically stable. CM Aware.
Anticipated Discharge: > 48 hours
Subjective/Interval History
-
Date of Service: April 29, 2023
drinking coffee
no overnight events
denies pain. enjoyed breakfast
Objective Data
-
Vital Signs:
Vital Signs
Temp Pulse Resp BP Pulse Ox
97.3 F 95 14 92/51 100
04/29/23 07:45 04/29/23 07:45 04/29/23 07:45 04/29/23 07:45 04/29/23 07:45
I&O
04/28/23 04/29/23 04/30/23
06:59 06:59 06:59
Intake Total 1320 / 1320 1440 / 1440
Balance 1320 / 1320 1440 / 1440
[2023-04-29 13:12] LABS: Glucose - Point of Care 188 mg/dl (70-99)
[2023-04-29] MEDS: NOVOLOG FLEXPEN-LOW RESISTANCE 1 UNITS SC (13:22)
--- NOTE | 2023-04-29 16:18 | W.PN.UPDATE ---
Update Note
Progress Note Update
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 Was treated in ED for possible UTI. Medications have been adjusted and now seem to be optimized.
Chart reviewed, spoke to nurse and visited in room. Daughter visiting. Pt. is alert but clearly disoriented to place, month and situation. Some aphasia. Significant cognitive impairment. Pleasant, although verbalized anger that left (when
he took a nap). He ambulates in his room and is eating well, although reported to sleep. Had been getting agitated necessitating PRN medications and adjustments to medications. Last PRN was 04/27 12:21. Is on Ripserdal-M Tab 1 mg. BID + 0.5 mg.
PRN; Ativan 1 mg. TID.
Blood pressure runs low (92/51); P95; O2 Sat good. Known to have L occipital CVA.
Is to be discharged to [facility] when insurance approves.
No changes made. Psychiatry will follow every few days.
[2023-04-29 16:41] VITALS: BP 138/82
[2023-04-29 16:48] LABS: Glucose - Point of Care 121 mg/dl (70-99)
[2023-04-29 22:12] LABS: Glucose - Point of Care 126 mg/dl (70-99)
[2023-04-29] MEDS: LANTUS 0.0500000000000000028 UNITS SC (22:26)
[2023-04-29 23:31] VITALS: BP 104/62
[2023-04-30 07:15] VITALS: BP 134/80
[2023-04-30] MEDS: TYLENOL 650 MG PO (07:37)
[2023-04-30] MEDS: ASPIR LOW (ENTERIC COATED) 81 MG PO (07:38)
[2023-04-30] MEDS: ATIVAN 1 MG PO ×3 (07:38→22:17)
[2023-04-30] MEDS: GLUCOPHAGE 1000 MG PO ×2 (07:38→16:33)
[2023-04-30] MEDS: NOVOLOG FLEXPEN-LOW RESISTANCE SC ×2 (07:38→16:35)
[2023-04-30] MEDS: RISPERDAL M-TAB (ORALLY DISINTEGRATING) 1 MG PO ×2 (07:38→20:11)
[2023-04-30] MEDS: THERAGRAN 1 TABLET PO (07:38)
[2023-04-30] MEDS: NOVOLOG FLEXPEN 4 UNITS SC ×3 (07:39→16:35)
[2023-04-30 07:46] LABS: Glucose - Point of Care 119 mg/dl (70-99)
--- NOTE | 2023-04-30 07:47 | PTCARENOTE ---
Called into room by remote monitor staff d/t patient getting OOB. Patient able to be redirected. Oriented to self only. Cooperative w/ morning assessment and med pass. Bed alarm remains in place, still requires remote observation d/t safety/fall
risk.
[2023-04-30] MEDS: RISPERDAL M-TAB (ORALLY DISINTEGRATING) 0.5 MG PO ×2 (10:45→18:45)
--- NOTE | 2023-04-30 10:58 | W.PN.HOSP.TC ---
Today's Communication/Plan
-
cont psych regimen
await placement
labs
Assessment / Plan
Assessment / Plan
Gen-awake, NAD
HEENT-NC, AT, anicteric, clear oral mucosa,
Neck-supple
CV-reg, no M, +S1/S2
Lungs-clear B/L
Abd-soft, NT, ND
Ext-no edema
Musculoskeletal-no cyanosis, clubbing
Skin-warm and dry
Neuro-grossly non-focal, apparent dementia
Psych-calm, cooperative
Failure to thrive -due to progression of underlying dementia.� Family states that he is gotten progressively weaker over the past few weeks, sleeping on the floor.� Unable to get up on his own.� Has developed decubital wounds.� Consult wound care.
Family requesting placement.� Case management aware.
Advanced dementia -likely Alzheimer's vs. vascular dementia.� Intermittent agitation with behavioral disturbances. Psych consulted. Valium stopped and started on ativan 1mg TID. Risperdal 1mg BID and Risperdal 0.5mg TID PRN. Regimen seems to
helping. Psych recs.
History of stroke -CT head from April 2022 showed old 3 cm left occipital infarct.� Moderate diffuse cortical atrophy with mild nonspecific white matter changes.
Hyponatremia -sodium 132 s/p gentle IVF. .� Possibly related to hypovolemia.� TSH normal.
DM2 without hyperglycemia -glucose 119 this morning.� Would use low resistance insulin scale, resume metformin.� Currently on Lantus 5 units at bedtime, NovoLog 4 units AC.
Pyuria -doubt UTI.� Patient has no symptoms, but is also not reliable given his dementia.� Emergency room administered a dose of fosfomycin.� Urine culture shows 50,000 CFU per mL Streptococcus species
R hip stage PI-POA
Small stage 1 sacral PI-POA
DNR
d/w with son at bedside on 04/25
Dispo -await placement to SNF. Medically stable. CM Aware.
Anticipated Discharge: Within 24 hours
Subjective/Interval History
-
Date of Service: April 30, 2023
No overnight events
tolerating breakfast
Objective Data
-
Vital Signs:
Vital Signs
Temp Pulse Resp BP Pulse Ox
97 F 99 16 134/80 98
04/30/23 07:15 04/30/23 07:15 04/30/23 07:15 04/30/23 07:15 04/30/23 07:15
I&O
04/29/23 04/30/23 05/01/23
06:59 06:59 06:59
Intake Total 1440 / 1440 1020 / 1020
Balance 1440 / 1440 1020 / 1020
[2023-04-30 11:35] LABS: Glucose - Point of Care 182 mg/dl (70-99)
[2023-04-30] MEDS: NOVOLOG FLEXPEN-LOW RESISTANCE 1 UNITS SC (11:35)
--- NOTE | 2023-04-30 16:20 | W.PN.UPDATE ---
Update Note
Progress Note Update
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 His was visiting. Apparently his daughter had been in and was trying to guilt her into staying. Nurse said he has also made comments about killing the kids.
He was coming out of the bathroom with a nurse. Walked with walker. Alert, but quite demented. No falls recently. Tolerating medications. Blood pressure is again in noirmal range. Is awaiting discharge to [facility].
[2023-04-30 16:39] LABS: Glucose - Point of Care 121 mg/dl (70-99)
[2023-04-30 16:42] VITALS: BP 157/89
[2023-04-30 21:19] LABS: Glucose - Point of Care 166 mg/dl (70-99)
[2023-04-30] MEDS: LANTUS 0.0500000000000000028 UNITS SC (22:20)
[2023-04-30 23:29] VITALS: BP 127/69
[2023-05-01 05:23] LABS: Blood Urea Nitrogen 10 mg/dl (9-20); Calcium 9.5 mg/dl (8.4-10.2); Carbon Dioxide 29 mmol/L (22-30); Chloride 91 mmol/L (98-107); Estimated Creatinine Clearance 121 ml/min; Glucose 155 mg/dl (70-99); Potassium 4.1 mmol/L (3.5-5.1); Sodium 128 mmol/L (135-145); eGFR > 60.00
[2023-05-01 07:00] VITALS: BP 151/82
[2023-05-01 07:04] LABS: Glucose - Point of Care 170 mg/dl (70-99)
[2023-05-01] MEDS: NOVOLOG FLEXPEN 4 UNITS SC ×3 (08:20→15:26)
[2023-05-01] MEDS: THERAGRAN 1 TABLET PO (08:20)
[2023-05-01] MEDS: ATIVAN 1 MG PO ×3 (08:20→22:13)
[2023-05-01] MEDS: GLUCOPHAGE 1000 MG PO ×2 (08:20→15:26)
[2023-05-01] MEDS: RISPERDAL M-TAB (ORALLY DISINTEGRATING) 1 MG PO ×2 (08:20→20:14)
[2023-05-01] MEDS: ASPIR LOW (ENTERIC COATED) 81 MG PO (08:20)
[2023-05-01] MEDS: NOVOLOG FLEXPEN-LOW RESISTANCE 1 UNITS SC ×2 (08:21→15:37)
[2023-05-01 11:34] LABS: Glucose - Point of Care 98 mg/dl (70-99)
[2023-05-01] MEDS: NOVOLOG FLEXPEN-LOW RESISTANCE SC (11:40)
--- NOTE | 2023-05-01 13:27 | CM ---
Received call from [employer] ([phone], option 3). One time contract letter has been initiated. Information was faxed to [facility] for signature and return of contract letter to [facility]. [employer] spoke with Josie regarding one time contract and
approval of 3 days (04/30-05/02); NRD 05/02 to [phone]. Per Josie, she can not accept the patient until firm administrator signs the contract letter and returns it to [facility]. [employer] continues to be available to patient/family and is monitoring medical plan
for needs at discharge.
Plan: Awaiting contract letter signature from [facility] [employer] prior to patient being able to transfer for the facility.
--- NOTE | 2023-05-01 14:02 | W.PN.HOSP.TC ---
Today's Communication/Plan
-
Fluid restriction
Check urine studies
Discharge planning
Assessment / Plan
Assessment / Plan
Gen-awake, NAD, confused
HEENT-NC, AT, anicteric, clear oral mucosa,
Neck-supple
CV-reg, no M, +S1/S2
Lungs-clear B/L
Abd-soft, NT, ND
Ext-no edema
Musculoskeletal-no cyanosis, clubbing
Skin-warm and dry
Neuro-grossly non-focal, apparent dementia
Psych-calm, cooperative
Failure to thrive -due to progression of underlying dementia.� Family states that he is gotten progressively weaker over the past few weeks, sleeping on the floor.� Unable to get up on his own.� Has developed decubital wounds.� Consult wound care.
Family requesting placement.� Case management aware.
Advanced dementia -likely Alzheimer's vs. vascular dementia.� Intermittent agitation with behavioral disturbances. Psych consulted. Valium stopped and started on ativan 1mg TID. Risperdal 1mg BID and Risperdal 0.5mg TID PRN. Regimen seems to
helping. Psych recs.
History of stroke -CT head from April 2022 showed old 3 cm left occipital infarct.� Moderate diffuse cortical atrophy with mild nonspecific white matter changes.
Hyponatremia -sodium down to 128 today. TSH normal. Start fluid restriction. Check urine studies.
DM2 without hyperglycemia -glucose 170 this morning.� Hemoglobin A1c 6.5%. Would use low resistance insulin scale, metformin.� Currently on Lantus 5 units at bedtime, NovoLog 4 units AC.
Pyuria -doubt UTI.� Patient has no symptoms, but is also not reliable given his dementia.� Emergency room administered a dose of fosfomycin.� Urine culture shows 50,000 CFU per mL Streptococcus species
R hip stage PI-POA
Small stage 1 sacral PI-POA
DNR
Dispo -await placement to SNF. Medically stable. CM Aware. updated at the bedside. Awaiting insurance authorization.
Anticipated Discharge: Within 24 hours
Subjective/Interval History
-
Date of Service: May 01, 2023
Patient seen and examined. at the bedside. No complaints.
Objective Data
-
Labs:
Laboratory Results
05/01/23
04:20
Sodium 128 L
Potassium 4.1
Chloride 91 L
Carbon Dioxide 29
BUN 10
Creatinine 0.4 L
Glucose 155 H
Calcium 9.5
Vital Signs:
Vital Signs
Temp Pulse Resp BP Pulse Ox
97.4 F 84 14 151/82 100
05/01/23 07:00 05/01/23 07:00 05/01/23 07:00 05/01/23 07:00 05/01/23 07:00
I&O
04/30/23 05/01/23 05/02/23
06:59 06:59 06:59
Intake Total 1020 / 1020 2019
Balance 1020 / 1020 2019
Review of Systems
-
Unable to obtain full review of systems at this time due to: Dementia
History Source: Patient
All other systems: Reviewed and negative
[2023-05-01 14:30] VITALS: BP 127/61; PULSE 88; O2SAT 100
[2023-05-01 15:00] VITALS: BP 139/69
[2023-05-01 15:34] LABS: Glucose - Point of Care 176 mg/dl (70-99)
[2023-05-01 21:46] LABS: Glucose - Point of Care 127 mg/dl (70-99)
[2023-05-01] MEDS: LANTUS 0.0500000000000000028 UNITS SC (22:14)
[2023-05-01 23:38] VITALS: BP 119/57
[2023-05-02 06:46] LABS: Blood Urea Nitrogen 12 mg/dl (9-20); Calcium 9.3 mg/dl (8.4-10.2); Carbon Dioxide 27 mmol/L (22-30); Chloride 96 mmol/L (98-107); Estimated Creatinine Clearance 121 ml/min; Glucose 93 mg/dl (70-99); Potassium 4.2 mmol/L (3.5-5.1); Sodium 129 mmol/L (135-145); eGFR > 60.00
[2023-05-02 08:05] VITALS: BP 125/97
[2023-05-02 08:51] LABS: Glucose - Point of Care 110 mg/dl (70-99)
--- NOTE | 2023-05-02 10:48 | CM ---
Addendum entered by Lynnette Scott RN 05/02/23 13:40:
Josie Admissions Liaison from [facility] is willing to accept the patient today at 7:00pm. She is waiting on the letter, but was assured by [facility] it is being sent.
Plan: Discharge to [facility]
Call report to: [phone]
Fax report to: [phone]
Medical necessity and transport form on chart.
Original Note:
Reviewed the chart notes. Call placed to [facility] to inquire about the one time contract. Spoke with security systems sales representative Shaneka ([phone]). Per Shaneka, the facility needs to contact [facility] directly regarding this contract. It is in the hands
of the facility to move forward. forwarded the information to Josie Admissions Liaison with [facility]. CM continues to be available to patient/family and is monitoring medical plan for needs at discharge.
Plan: Discharge to [facility] once contract has been agreed upon between [facility] and [facility].
[2023-05-02] MEDS: NOVOLOG FLEXPEN-LOW RESISTANCE SC ×3 (11:04→18:08)
[2023-05-02] MEDS: NOVOLOG FLEXPEN 4 UNITS SC ×3 (11:05→18:09)
[2023-05-02] MEDS: RISPERDAL M-TAB (ORALLY DISINTEGRATING) 1 MG PO ×2 (11:06→22:05)
[2023-05-02] MEDS: ASPIR LOW (ENTERIC COATED) 81 MG PO (11:06)
[2023-05-02] MEDS: ATIVAN 1 MG PO ×3 (11:06→23:14)
[2023-05-02] MEDS: THERAGRAN 1 TABLET PO (11:06)
[2023-05-02] MEDS: GLUCOPHAGE 1000 MG PO ×2 (11:06→18:09)
--- NOTE | 2023-05-02 11:40 | W.PN.UPDATE ---
Update Note
Progress Note Update
Patient seen in room, sleeping in chair, chart reviewed, discussed with staff. No acute events overnight. He remains confused and at times will attempt to get OOB but has been redirectable. Plan to DC to SNF, awaiting PPW.
Impression/Plan: � Dementia, progressive - Continue current psychotropic med regimen which includes risperidone M-tabs 1mg BID and Ativan 1mg TID.
[2023-05-02 12:13] VITALS: BP 111/62; PULSE 95; O2SAT 100
[2023-05-02 12:31] LABS: Glucose - Point of Care 123 mg/dl (70-99)
--- NOTE | 2023-05-02 13:23 | W.PN.HOSP.TC ---
Today's Communication/Plan
-
Awaiting placement
Assessment / Plan
Assessment / Plan
Gen-awake, NAD, confused
HEENT-NC, AT, anicteric, clear oral mucosa,
Neck-supple
CV-reg, no M, +S1/S2
Lungs-clear B/L
Abd-soft, NT, ND
Ext-no edema
Musculoskeletal-no cyanosis, clubbing
Skin-warm and dry
Neuro-grossly non-focal, apparent dementia
Psych-calm, cooperative
Failure to thrive -due to progression of underlying dementia.� Family states that he is gotten progressively weaker over the past few weeks, sleeping on the floor.� Unable to get up on his own.� Has developed decubital wounds.� Consult wound care.
Family requesting placement.� Case management aware.
Advanced dementia -likely Alzheimer's vs. vascular dementia. Behaviors now under good control. Valium stopped and started on ativan 1mg TID. Risperdal 1mg BID and Risperdal 0.5mg TID PRN. Regimen seems to helping. Psych recs.
History of stroke -CT head from April 2022 showed old 3 cm left occipital infarct.� Moderate diffuse cortical atrophy with mild nonspecific white matter changes.
Hyponatremia -sodium 129 today. TSH normal. Continue fluid restriction. Check urine studies.
DM2 without hyperglycemia -glucose 170 this morning.� Hemoglobin A1c 6.5%. Would use low resistance insulin scale, metformin.� Currently on Lantus 5 units at bedtime, NovoLog 4 units AC.
Pyuria -doubt UTI.� Patient has no symptoms, but is also not reliable given his dementia.� Emergency room administered a dose of fosfomycin.� Urine culture shows 50,000 CFU per mL Streptococcus species
R hip stage PI-POA
Small stage 1 sacral PI-POA
DNR
Dispo -await placement to SNF. Medically stable. CM Aware. updated at the bedside. Awaiting insurance authorization.
Anticipated Discharge: Within 24 hours
Subjective/Interval History
-
Date of Service: May 02, 2023
Patient seen and examined. Sitting in the chair. at the bedside. He is watching TV. No complaints.
Objective Data
-
Labs:
Laboratory Results
05/02/23
05:20
Sodium 129 L
Potassium 4.2
Chloride 96 L
Carbon Dioxide 27
BUN 12
Creatinine 0.4 L
Glucose 93
Calcium 9.3
Vital Signs:
Vital Signs
Temp Pulse Resp BP Pulse Ox
97.4 F 92 14 125/97 100
05/02/23 08:05 05/02/23 08:05 05/02/23 08:05 05/02/23 08:05 05/02/23 08:05
I&O
05/01/23 05/02/23 05/03/23
06:59 06:59 06:59
Intake Total 2019 770 / 770
Balance 2019 770 / 770
Review of Systems
-
History Source: Patient
All other systems: Reviewed and negative
--- NOTE | 2023-05-02 13:56 | W.DS.TRANS ---
DC Summary - Hand Buffing Wheel Former
-
Discharge Instructions:
Discharge Diagnosis/Procedures Failure to thrive secondary to progression of
underlying dementia
Advanced dementia with behavioral disturbances
Hyponatremia
Pyuria
Diet Diabetic, Carb Controlled,Restrict fluids to 48
oz
Instructions:
Stand-Alone Forms:
Changes to Home Medications: No
Discharge Medications:
DC Medications w/original date entered in [employer]
metformin 1,000 mg tablet 1,000 mg PO BID@0800,1700 Diabetes #60 tabs 04/20/22
aspirin 81 mg tablet,delayed release 81 mg PO DAILY Blood Clot Prevention/Tx 04/21/23
therapeutic multivitamin 1 tab PO DAILY Supplement 04/21/23
Insulin Glargine Lantus [Lantus] 5 units As Directed mls/hr SC HS 05/02/23
insulin aspart U-100 100 unit/mL (3 mL) subcutaneous pen 4 unit (0.04 mL) SC AC #0 mL 05/02/23
lorazepam 1 mg tablet 1 mg PO TID #6 tabs 05/02/23
risperidone 0.5 mg disintegrating tablet 0.5 mg PO Q8HPRN PRN severe agitation #0 tabs 05/02/23
risperidone 1 mg disintegrating tablet 1 mg PO BID #0 tabs 05/02/23
Home Medication Changes
Pending Results: No
[2023-05-02 16:00] VITALS: BP 105/74
[2023-05-02 17:13] LABS: Glucose - Point of Care 82 mg/dl (70-99)
[2023-05-02 22:02] LABS: Glucose - Point of Care 229 mg/dl (70-99)
[2023-05-02] MEDS: LANTUS 0.0500000000000000028 UNITS SC (22:04)
[2023-05-02 23:39] VITALS: BP 119/83
[2023-05-03 05:50] LABS: Blood Urea Nitrogen 11 mg/dl (9-20); Calcium 9.2 mg/dl (8.4-10.2); Carbon Dioxide 25 mmol/L (22-30); Chloride 97 mmol/L (98-107); Estimated Creatinine Clearance 121 ml/min; Glucose 99 mg/dl (70-99); Potassium 4.1 mmol/L (3.5-5.1); Sodium 129 mmol/L (135-145); eGFR > 60.00
[2023-05-03 07:50] VITALS: BP 92/50
[2023-05-03] MEDS: ATIVAN 1 MG PO ×2 (08:03→16:36)
[2023-05-03] MEDS: RISPERDAL M-TAB (ORALLY DISINTEGRATING) 1 MG PO (08:03)
[2023-05-03] MEDS: NOVOLOG FLEXPEN-LOW RESISTANCE SC ×3 (08:03→16:17)
[2023-05-03] MEDS: GLUCOPHAGE 1000 MG PO ×2 (08:03→16:36)
[2023-05-03] MEDS: THERAGRAN 1 TABLET PO (08:03)
[2023-05-03] MEDS: ASPIR LOW (ENTERIC COATED) 81 MG PO (08:03)
[2023-05-03 08:04] LABS: Glucose - Point of Care 103 mg/dl (70-99)
--- NOTE | 2023-05-03 08:44 | CM ---
Addendum entered by Lynnette Scott RN 05/03/23 13:33:
Per Josie Admissions Liaison [facility], patient is able to be admitted to their facility today. Family, attending, and RN updated.
Plan: Discharge to [facility]
Call report to: [phone]
Fax report to: [phone]
Medical necessity and transport form on chart.
Original Note:
Reviewed the chart notes and spoke with the patient's son at the bedside. The patient's transfer was held last evening due to the facilities inability to obtain a one time contract with [employer]. Per Josie Admissions Liaison with [facility], she
will attempt to obtain today. CM continues to be available to patient/family and is monitoring medical plan for needs at discharge.
Plan: Discharge to [facility] once one time contract between facility and [facility] is obtained.
[2023-05-03] MEDS: NOVOLOG FLEXPEN 4 UNITS SC ×3 (09:20→16:35)
--- NOTE | 2023-05-03 11:25 | W.PN.UPDATE ---
Update Note
Progress Note Update
patient seen chart reviewed. spoke with nursing and with case mgt. the patient was very pleasant and agreeable when seen by this greeting card writer. that said he remains very confused and while a conversation was attempted his responses were not logical or
related to the simple questions i asked although his speech was fluid and the words were well articulated. he has not required prns. there is an insurance snafu which hopefully will be ironed out in the very near future (need for single case
agreement w tino). since he is doing relatively well at this point...he has not required a prn since 04/29 and is due to leave soon, psych will sign off
--- NOTE | 2023-05-03 11:32 | W.PN.HOSP.TC ---
Today's Communication/Plan
-
discharge planning
Assessment / Plan
Assessment / Plan
Gen-awake, NAD, confused
HEENT-NC, AT, anicteric, clear oral mucosa,
Neck-supple
CV-reg, no M, +S1/S2
Lungs-clear B/L
Abd-soft, NT, ND
Ext-no edema
Musculoskeletal-no cyanosis, clubbing
Skin-warm and dry
Neuro-grossly non-focal, apparent dementia
Psych-calm, cooperative
Failure to thrive -due to progression of underlying dementia.� Family states that he is gotten progressively weaker over the past few weeks, sleeping on the floor.� Unable to get up on his own.� Has developed decubital wounds.� Consult wound care.
Family requesting placement.� Case management aware.
Advanced dementia -likely Alzheimer's vs. vascular dementia. Behaviors now under good control. Valium stopped and started on ativan 1mg TID. Risperdal 1mg BID and Risperdal 0.5mg TID PRN. Regimen seems to helping. Psych recs.
History of stroke -CT head from April 2022 showed old 3 cm left occipital infarct.� Moderate diffuse cortical atrophy with mild nonspecific white matter changes.
Hyponatremia -sodium 129 today, stable. TSH normal. Continue fluid restriction. Check urine studies.
DM2 without hyperglycemia -glucose 103 this morning.� Hemoglobin A1c 6.5%. Would use low resistance insulin scale, metformin.� Currently on Lantus 5 units at bedtime, NovoLog 4 units AC.
Pyuria -doubt UTI.� Patient has no symptoms, but is also not reliable given his dementia.� Emergency room administered a dose of fosfomycin.� Urine culture shows 50,000 CFU per mL Streptococcus species
R hip stage PI-POA
Small stage 1 sacral PI-POA
DNR
Dispo -await placement to SNF. Medically stable. CM Aware. updated at the bedside. Awaiting insurance authorization.
Anticipated Discharge: Within 24 hours
Subjective/Interval History
-
Date of Service: May 03, 2023
Patient seen/examined, no complaints.
Objective Data
-
Labs:
Laboratory Results
05/03/23
03:53
Sodium 129 L
Potassium 4.1
Chloride 97 L
Carbon Dioxide 25
BUN 11
Creatinine 0.4 L
Glucose 99
Calcium 9.2
Vital Signs:
Vital Signs
Temp Pulse Resp BP Pulse Ox
97.2 F 93 16 92/50 99
05/03/23 07:50 05/03/23 07:50 05/03/23 07:50 05/03/23 07:50 05/03/23 07:50
I&O
05/02/23 05/03/23 05/04/23
06:59 06:59 06:59
Intake Total 770 / 770 900 / 900
Balance 770 / 770 900 / 900
Review of Systems
-
Unable to obtain full review of systems at this time due to: Dementia
History Source: Patient
All other systems: Reviewed and negative
[2023-05-03 11:56] LABS: Glucose - Point of Care 109 mg/dl (70-99)
[2023-05-03 15:59] VITALS: BP 120/65
[2023-05-03 16:17] LABS: Glucose - Point of Care 97 mg/dl (70-99)
== END 2023-05-03 17:20 ==
LOC: 2 NORTH 17:07
PROVIDERS: Hospitalist; Physician Assistant; ADMITTING PHYSICIAN Hospitalist; CONSULT PHYSICIAN Psychiatry & Neurology Psychiatry; EMERGENCY PHYSICIAN Emergency Medicine; FAMILY PHYSICIAN Internal Medicine
DX: F03.911 Unspecified dementia, unspecified severity, with agitation (principal); R53.1 Weakness; R62.7 Adult failure to thrive; E87.1 Hypo-osmolality and hyponatremia; E11.9 Type 2 diabetes mellitus without complications; L89.151 Pressure ulcer of sacral region, stage 1; Z66 Do not resuscitate; Z68.21 Body mass index [BMI] 21.0-21.9, adult; Z75.1 Person awaiting admission to adequate facility elsewhere; Z79.4 Long term (current) use of insulin; Z79.82 Long term (current) use of aspirin; Z79.899 Other long term (current) drug therapy; Z86.73 Personal history of transient ischemic attack (TIA), and cerebral infarction without residual deficits; Z87.891 Personal history of nicotine dependence
CPT/HCPCS: 51701; 80048; 80053; 81003; 81015; 82607; 82746; 82962; 83036; 84443; 85025; 87086; 97116; 97166; 97530; 97535; 99284; G0378

== ENCOUNTER 2023-06-07 09:58 | Inpatient (IN) | payer OTHER, SELFPAY ==
[2023-06-07] VITALS (16 sets, daily range): BP systolic 106–141; BP diastolic 65–92; PULSE 2–136; BMI 19.2
--- NOTE | 2023-06-07 07:44 | ED.GENMED ---
History of Present Illness
General
Chief Complaint: Fever
Source: significant other, ambulance crew and custodial
Exam Limitations: altered mental status and dementia
Time Seen by Provider: 06/07/23 07:33
Nursing documentation reviewed up to this point in time: agreed with
Travel History
Have you had any contact with someone who has COVID-19?: No
Do you have any symptoms of coronavirus? Fever > 100 degrees, chills, cough, shortness of breath, sore throat, loss of taste or smell, muscle aches, or headache?: No
History of Present Illness
History of Present Illness:
73 yr old male sent from [facility] . Pt has history of dementia , sent by [place] for fever.
Pt arrives to the ED awake not responding, arrives febrile.
I spoke with , Niki who reports patient was hospitalized here the end of March .
In review of records patient was hospitalized here for failure to thrive and weakness. At that time patient was also seen by psychiatry for mood and behavior issues. Patient was prescribed Risperdal. Patient was discharged May 02 to [place]
[facility]. reports ever since being at custodial she feels the patient is overmedicated and he has not been doing anything. He seems very out of it. She does report that she thinks his medication has been getting decreased .
Patient is a diabetic on insulin and arrives with an elevated blood sugar. Patient was apparently given 7 units of sliding scale Humalog insulin for a blood sugar of 449 REFERRAL AGENT. As per . Patient is a DNR no CPR no defibrillation, no intubation,
however she does wish for further evaluation of patient's symptoms, workup and treatment.
I spoke to nurse from [place]. Tylenol was not given for fever.
Nurse does report pt's Ativan was decreased from 1 mg TID to 0.5 mg TID. In addition pt's Risperdal was also being decreased.
Review of Systems
Review of Systems
Allergies reviewed?: Yes
Unable to obtain full review of systems at this time due to: dementia
Other source history: family, custodial and ambulance crew
All Other Systems: ROS reviewed and negative except as documented in HPI and ROS
Constitutional: Reports fever
Respiratory: Reports other ('increased resp rate' )
Cardiac: Reports no symptoms
ABD/GI: Reports no symptoms
: Reports no symptoms
Musculoskeletal: Reports no symptoms
Skin: Reports no symptoms
Neurological: Reports other (increased confusion as per NH. very sedated as per NH )
Psychiatric: Reports no symptoms
Phy Exam
General Physical Exam
General Presentation: no apparent distress
General age: appears stated age
General Skin: warm and dry
General Habitus: elderly
General Mental: other (not responding )
General Hydration: dry mucous membranes
Cardiovascular Exam
Cardiovascular Exam: tachycardia
Pulmonary Exam
Pulmonary Exam: lungs clear, no respiratory distress and other (increased resp rate )
Neurological Exam
Neurological Exam: other (pt does not respond )
Musculoskeletal Exam
Musculoskeletal Exam: full ROM
Skin Exam
Skin Exam: normal color and warm/dry
Course
Orders/Labs/Results
Orders:
Orders
06/07/23 07:37
Electrocardiogram (*1) Urgent
Reason for Study: Other
Other Reason for Exam: Possible Sepsis
06/07/23 07:38
EKG- Treatment ONCE
06/07/23 07:46
COVID-19 Antigen Urgent
Source: Nasal Swab
Complete Blood Count/With Diff Urgent
Comprehensive Metabolic Panel Urgent
Lactic Acid Q4H
Comment: ON ICE, CANCEL 2ND ORDER IF FIRST LACTIC ACID LEVEL <2
Blood Culture Q30M
BOBBY Source: Blood/Venous
Specimen Description:
Comment: FROM 2 SEPARATE SITES
Influenza A+B Rapid Molecular Urgent
BOBBY Source: Nasal Swab
Specimen Description:
06/07/23 07:54
Cardiac Monitoring- Treatment ONCE
Straight cath- Treatment ONCE
06/07/23 07:55
EKG- Treatment ONCE
06/07/23 08:04
Acetaminophen [Tylenol/Feverall] 650 mg RECTAL NOW STA
06/07/23 08:13
0.9% Sodium Chloride 1000 ml [Nss] 2,000 ml IV NOW STA
06/07/23 08:18
UA Reflex to Culture [Urinalysis Reflex To Culture] Urgent
Date Specimen was Collected: 06/07/23
Time Specimen was Collected: 08:03
Urine Microscopic Reflex Cult Urgent
Blood Culture Q30M
BOBBY Source: Blood/Venous
Specimen Description:
Comment: FROM 2 SEPARATE SITES
06/07/23 08:33
Portable Chest Xray [CR Chest Portable - 1 View] Urgent
Comment:
Reason For Exam: fever
Reason Study Needs to be Portable: Patient Unstable
06/07/23 08:43
Vancomycin 1 Gram/200 ml [Vancocin] 1 gram in 200 ml IV NOW
06/07/23 08:44
Cefepime HCl [Maxipime] 1,000 mg IV NOW STA
06/07/23 09:27
CT Chest Pe Study Stat
Comment:
Reason For Exam: Hypoxia, Tahcycardia, Bedridden
06/07/23 09:29
CR Abdomen, Portable - 1 View Urgent
Comment:
Reason For Exam: Stool [place], Bed Ridden
06/07/23 09:30
Admit/Transfer Patient As Directed
Co-Sign Provider:
Level of Care: Inpatient admission
Assign to:: IMU- Intermediate Care
Physician / Group: Dr. Owen Padilla/Hospitalists
Diagnosis: Sepsis, Pneumonia
Reason for Hospitalization: Sepsis, Pneumonia
Expected length of stay greater than two midnights?: Yes
ELOS- Estimated Length of Stay in days: 4
I certify the patient meets the requirements for IP care: Yes
06/07/23 09:32
Code Status As Directed
Resuscitation Status: Do not resuscitate
Reached after discussion with pt or family/Healthcare POA: Yes
Physician note:: At the time of admission, I confirmed patient's DNR status with patient's and patient's
children.
DNR Bracelet Application ONCE
06/07/23 09:41
Arterial Blood Gas Urgent
%Oxygen/Room Air: 90
06/07/23 09:42
B-Hydroxybutyrate Urgent
06/07/23 09:47
Dextrose 50%-Water [Dextrose 50% Syringe] 12.5 grams IV Q35BICO PRN
Glucagon [GlucaGen] 1 mg IM PRN PRN
Bedside Glucose Monitoring As Directed
Frequency: AC&HS
Comment: Change to q6h if pt on TPN, tube feeding or not eating
06/07/23 09:48
NEPHROLOGY CONSULT Routine
Consulting Provider: Rima Albert
Was physician already notified: Yes
Reason for consult: Severe hypernatremia and severe altered mental status
06/07/23 09:49
MRSA Screen Routine
BOBBY Source: Nose
Specimen Description:
Speech Therapy Eval & Treat Routine
06/07/23 09:50
WOUND/OSTOMY CONSULT Routine
Reason for Consult: Wound care
06/07/23 09:52
Echo 2D MMode Color/Doppler Routine
Reason for Study: Tachycardia, Hypoxia
06/07/23 11:30
Insulin Aspart Corrective Low [Novolog Flexpen-Low Resistance] See Protocol SC AC
06/07/23 11:45
Lactic Acid Q4H
Comment: ON ICE, CANCEL 2ND ORDER IF FIRST LACTIC ACID LEVEL <2
06/08/23 06:00
Glycohemoglobin (HgbA1c) IN AM
Abnormal Lab Results
04/12/2006/07/23 06/07/23
07:46 07:58 08:18
WBC 21.4 H 10^3/uL
(4.8-10.8)
RBC 4.07 L 10^6/uL
(4.70-6.10)
Hgb 11.6 L g/dL
(13.0-18.0)
Hct 35.0 L %
(39.0-52.0)
RDW 14.7 H %
(11.5-14.5)
MPV 10.9 H fL
(7.4-10.4)
Abs Immat Gran (auto) 0.2 H 10^3/uL
(0-0.05)
Absolute Neuts (auto) 18.4 H 10^3/uL
(1.4-6.5)
Absolute Monos (auto) 1.6 H 10^3/uL
(0.1-0.6)
Immature Gran % 0.8 H %
(0-0.5)
Neutrophils % 85.9 H %
(42.2-75.2)
Lymphocytes % 5.7 L %
(20.5-51.1)
Sodium 153 H mmol/L
(135-145)
Chloride 117 H mmol/L
(98-107)
BUN 41 H mg/dl
(9-20)
Glucose 287 H mg/dl
(70-99)
Lactic Acid 2.5 H mmol/L
(0.7-2.0)
AST 159 H U/L
(17-59)
ALT 152 H U/L
(0-50)
Albumin 3.3 L g/dl
(3.5-5.0)
Urine Ketones 2+ A
(Negative)
Ur Occult Blood Reflex 3+ A
(Negative)
Urine RBC 3-6 A /HPF
(0-2)
Urine Bacteria (Reflex) Few A
(Negative)
Urine Glucose 1+ A
(Negative)
POC Glucose 264 H mg/dl
(70-99)
06/07/23 07:46
06/07/23 07:46
Vital Signs
Initial and Last Documented VS:
Initial Vital Signs
Temp Pulse Resp BP Pulse Ox
102.2 F H 137 40 129/83 98
06/07/23 07:32 06/07/23 07:32 06/07/23 07:32 06/07/23 07:32 06/07/23 07:32
Last Documented Vital Signs
Temp Pulse Resp BP Pulse Ox
102.2 F H 137 40 129/83 98
06/07/23 07:32 06/07/23 07:32 06/07/23 07:32 06/07/23 07:32 06/07/23 07:32
Hearing Aid Technician consulted with Physician
Hearing Aid Technician consulted with physician?: Yes
Name of Physician Consulted: Asad
MDM/Problems Addressed
Differential Diagnosis Includes:
Not limited to sepsis, pneumonia, UTI, dehydration, hyperglycemia, DKA, electrolyte abnormality
MDM/Problems Addressed:
Patient is a 73-year-old male sent from custodial for fever. Patient is presently in rehab after recently being admitted here at the hospital. I spoke with over the phone however because patient has been overmedicated at the custodial
and they have been decreasing his Ativan and Risperdal. Patient arrives awake alert he is not responding. Patient arrives tachycardic tachypneic not hypoxic febrile. Patient was given Tylenol and septic fluids here in the ER. Patient's white
count was found to be elevated at 21.4 chest x-ray does show a right-sided pneumonia. Patient is very dry on exam with an elevated BUN of 41 normal creatinine 1.0 elevated sodium of 153.
Patient's sugar 287. Patient's LFTs are mildly elevated AST 159 ALT 152 normal bilirubin patient given antibiotics. Will require mission. Patient is a DNR however does want full treatment for current symptoms dementia type
Chronic conditions affecting care:
Dementia diabetes
*Critical Care Note
Total Time (30-74mins, 75-104mins- exclusive of procedures): Not Applicable
ED Attending Note
-
Portions of this chart may have been created with voice recognition software.� Occasional wrong word or��sound alike� substitutions may have occurred due to the inherent limitations of voice recognition software.
Discharge Plan
Departure
Patient Disposition: Admit
Date of Disposition: 06/07/23
Time of Disposition: 09:03
Admit to: Med/Surg
Admit to doctor: hospitalist
Presentation/result/management discussed w/ accepting MD/DO: Hospitalist
Patient with high blood pressure during this ER visit?: Yes
Condition: Fair
Covid-19: Not Applicable
Discharge Problem:
Pneumonia, Acute hyperglycemia
Interventions
Interventions:
*Risk Screen - Suicide Last Done: 06/07/23 07:32
*General Assessment Last Done: 06/07/23 07:32
*Neglect/Abuse Screening Last Done: 06/07/23 07:32
ED- Cardiac Assessment Last Done: 06/07/23 08:30
ED- Neurological Assessment Last Done: 06/07/23 08:30
ED- Pulmonary Assessment Last Done: 06/07/23 08:30
[2023-06-07 08:00] LABS: Glucose - Point of Care 264 mg/dl (70-99)
[2023-06-07 08:02] LABS: % Basophils 0.1 % (0-2); % Immature Granulocytes 0.8 % (0-0.5); % Lymphocytes 5.7 % (20.5-51.1); % Monocytes 7.5 % (1.7-9.3); % Neutrophils 85.9 % (42.2-75.2); Absolute Immature Granulocytes 0.2 10^3/uL (0-0.05); Absolute Lymphocytes 1.2 10^3/uL (1.2-3.4); Absolute Monocytes 1.6 10^3/uL (0.1-0.6); Absolute Neutrophils 18.4 10^3/uL (1.4-6.5); Hemoglobin 11.6 g/dL (13.0-18.0); Mean Corp Hgb Conc. 33.1 g/dL (33.0-37.0); Mean Corpuscular Hgb 28.5 pg (27.0-31.0); Mean Platelet Volume 10.9 fL (7.4-10.4); Nucleated Red Blood Cells % 0 % (-); Platelet Count 358 10^3/uL (130-400); Red Blood Cell Count 4.07 10^6/uL (4.70-6.10); Red Cell Dist. Width 14.7 % (11.5-14.5); White Blood Cell Count 21.4 10^3/uL (4.8-10.8)
[2023-06-07 08:11] LABS: Lactic Acid 2.5 mmol/L (0.7-2.0)
[2023-06-07 08:12] LABS: COVID-19 Antigen Negative (Negative)
[2023-06-07 08:18] LABS: ALT (SGPT) 152 U/L (0-50); AST (SGOT) 159 U/L (17-59); Albumin 3.3 g/dl (3.5-5.0); Alkaline Phosphatase 122 U/L (38-126); Blood Urea Nitrogen 41 mg/dl (9-20); Calcium 9.8 mg/dl (8.4-10.2); Carbon Dioxide 29 mmol/L (22-30); Chloride 117 mmol/L (98-107); Estimated Creatinine Clearance 64 ml/min; Glucose 287 mg/dl (70-99); Potassium 3.5 mmol/L (3.5-5.1); Sodium 153 mmol/L (135-145); Total Bilirubin 0.6 mg/dl (0.2-1.3); Total Protein 6.7 g/dl (6.3-8.2); eGFR > 60.00
[2023-06-07] MEDS: TYLENOL/FEVERALL 650 MG RECTAL (08:21)
[2023-06-07] MEDS: NSS 2000 ML IV (08:25)
[2023-06-07 09:02] LABS: Urine Albumin Trace (Neg - Trace); Urine Bilirubin Negative (Negative); Urine Character Clear (Clear); Urine Color Yellow; Urine Glucose 1+ (Negative); Urine Ketone 2+ (Negative); Urine Leukocyte Negative (Negative); Urine Nitrite Negative (Negative); Urine Occult Blood 3+ (Negative); Urine Urobilinogen Negative (Neg - 1+)
[2023-06-07] MEDS: MAXIPIME 1000 MG IV (09:18)
[2023-06-07] MEDS: VANCOCIN 200 IV (09:20)
[2023-06-07 09:34] LABS: Urine Squamous Cell 16-20 /LPF (Few)
[2023-06-07 09:36] LABS: Urine Granular Cast 0-2 /LPF (0); Urine White Cell 0-2 /HPF (0-5)
[2023-06-07 09:37] LABS: Urine Bacteria Few (Negative)
--- NOTE | 2023-06-07 09:37 | HPS.HSE ---
Family Physician
-
Family Physician: Reed Borrego
Chief Complaint
-
Fever, high heart rate, lower level of function, more confused
History of Present Illness
73 y/o male, from [facility], with past medical history of Severe dementia, Failure to thrive, Chronic pain syndrome, Basal Cell Carcinoma of Right Ear s/p Surgical Excision in 08/2017, Insulin dependant Type 2 diabetes mellitus, CVA, Anxiety,
Hyponatremia, Decubitus ulcer of sacral region, stage 1, Pressure ulcer of right hip presented with fever and tachycardia as per patient's family. He has dementia, but he is even less interactive now. His Ativan and Risperdal were being decreased at
the outside facility where he is from. Patient was nonverbal so history was not able to be obtained from him.
Medical History
Past Medical History
Past Medical History: Reports Other (As per HPI above)
Past Surgical History: Reports Other (Unknown - patient is nonverbal)
Social History
Tobacco: Former Smoker
Family History
Family History: Unable to Obtain
Allergies / Home Medications
Allergies reflects when Allergies were last updated in [facility].
Home Medications with original date entered in [facility]
Allergy/Medication List:
Allergies
Allergy/AdvReac Type Severity Reaction Status Date / Time
No Known Allergies Allergy Verified 06/07/23 07:32
Home Medications
metformin 1,000 mg tablet 1,000 mg PO BID@0800,1700 Diabetes #60 tabs 04/20/22
aspirin 81 mg tablet,delayed release 81 mg PO DAILY Blood Clot Prevention/Tx 04/21/23
acetaminophen 325 mg tablet (Tylenol) 650 mg PO Q6HPRN PRN mild pain 06/07/23
insulin glargine 100 unit/mL subcutaneous solution (Lantus U-100 Insulin) 5 unit SC HS Diabetes 06/07/23
insulin lispro 100 unit/mL subcutaneous solution 4 unit SC AC Diabetes 06/07/23
lorazepam 0.5 mg tablet 0.5 mg PO TID Mental Health/Anxiety 06/07/23
risperidone 0.5 mg disintegrating tablet 0.5 mg PO BID Neurological Condition 06/07/23
therapeutic multivitamin 1 tab PO DAILY Supplement 06/07/23
Review of Systems
-
Unable to obtain full review of systems at this time due to: Patient Non-verbal
Physical Exam
Vital Signs
Vital Signs
Temp Pulse Resp BP Pulse Ox
102.2 F H 137 40 129/83 98
06/07/23 07:32 06/07/23 07:32 06/07/23 07:32 06/07/23 07:32 06/07/23 07:32
Physical Exam
General: Comfortable and Appears Chronically Ill
HEENT: NormoCephalic, Moist mucous membranes and Other (Dry Mucous Membranes)
Respiratory: Non Labored Respirations and Decreased Breath Sounds
Cardiac: S1/S2 and Tachycardia
GI: Soft, Non Tender and Normal Bowel Sounds
Musculoskeletal: No Cyanosis and No Edema
Skin: Warm and Dry
Neuro: Other (Nonverbal. Not following commands.)
Psych: Confused and Apparent Dementia
Laboratory Results
-
06/07/23 07:46
06/07/23 07:46
Laboratory Results
Lactic Acid 2.5 mmol/L (0.7-2.0) H 06/07/23 07:46
Total Bilirubin 0.6 mg/dl (0.2-1.3) 06/07/23 07:46
AST 159 U/L (17-59) H 06/07/23 07:46
ALT 152 U/L (0-50) H 06/07/23 07:46
Alkaline Phosphatase 122 U/L (38-126) 06/07/23 07:46
Impression/Plan
-
Assessment/Plan
Severe Sepsis
Pneumonia
Lactic Acidosis - RESOLVED
Tachycardia
Leukocytosis
-Continue Vancomycin and Cefepime
-Follow cultures
-Monitor vital signs and temperature curve -- repeat blood cultures x2 for T>100.4 F
-Continue intravenous fluids
Acute Hypoxic Respiratory Failure
Acute Pulmonary Embolism in the RUL and RLL
-Heparin Drip started -- continue
-Echocardiogram
-Troponins
-Check ultrasound of lower extremities
Severe Hypernatremia
-Fluid boluses given in the ER
-Consulted nephrology, recommendations appreciated
-Continue 1/4 normal saline at 100 cc/hr for now (due to hyperglycemia) -- discussed this with nephrology on June 07, 2023 morning
-Check BMP Q4H
Elevated Transaminases
-RUQ ultrasound
-Monitor AST/ALT/CMP
Severe dementia
Failure to thrive
-Patient's stated that patient's diet was restricted at [facility] for unclear reason
-Last admission, it was noted that failure to thrive was due to progression of underlying dementia and at that time family stated that patient has gotten progressively weaker, sleeping on the floor and unable to get up on his own
-Speech therapy/evaluation consult
-NPO until speech evaluation
Chronic pain syndrome
Basal Cell Carcinoma of Right Ear s/p Surgical Excision in 08/2017
Insulin dependant Type 2 diabetes mellitus
-Insulin Sliding Scale
-Accuchecks
-Hold home Metformin
-Consulted Diabetes BUSINESS SERVICES SALES REPRESENTATIVE, recommendations appreciated
History of Stroke
-Last admission it was noted that CT head from April 2022 showed old 3 cm left occipital infarct. Moderate diffuse cortical atrophy with mild nonspecific white matter changes.
Anxiety - Last admission it was noted that patient was on Ativan 1 mg PO TID and Risperidone 0.5 mg PO Q8HPRN severe agitation --> these medications were since changed to Ativan 0.5 mg PO TID and Risperidone 0.5 mg PO BID
Hyponatremia
-Now patient is hypernatremic (please see above)
Decubitus ulcer of sacral region - wound care consult evaluation and recommendations appreciated
Pressure ulcer of right hip - wound care consult evaluation and recommendations appreciated
DVT Prophylaxis: Heparin Drip
Code Status: DNR (confirmed by patient's son, daughter and at bedside)
Acute Pulmonary Embolism with Heparin Drip treatment, severe hypernatremia, tachycardia, hypoxia, severely altered mental status with baseline dementia, severe sepsis and pneumonia is a high risk encounter.
[2023-06-07 10:41] LABS: B.E. 4.2 mmol/L; HCO3 28.4 mmol/L (21-28); O2 Saturation % 99.3 % (94-98); PCO2 40 mmHg (35-48); PO2 106 mmHg (83-108); pH 7.46 (7.35-7.45)
[2023-06-07] MEDS: SODIUM CHLORIDE 1009.625 MEQ IV (10:41)
--- NOTE | 2023-06-07 11:05 | CON.PUL ---
Consultation
Consultation Request
Date/Time Consultation Requested: 06/07/23
Date/Time Consultation Performed: 06/07/23
Performing Provider: Shell
Reason for Consultation: Hypoxia
Medical History
-
History of Present Illness:
Patient is a 73 year old M with history of severe dementia, FTT sent from [facility] for fever. Patient is noted to be nonverbal on arrival to ER, but with persistent fever, tachycardia and tachypnea.
Family reports most of history due to patient's baseline cognitive impairment. He was recently hospitalized for FTT and weakness, placed on Risperdal for agitation/mood disorder related to dementia.
His family notes that he had progressively become more bed bound in the past week and that he was then restricted on his diet to 'liquids only' per . She notes that he was restricted in texture and quantity of his meals.
At baseline he is confused but able to answer simple questions/follow simple commands.
In ER, patient is on 5L NC, BS 449 given regular insulin 7 units n for a blood sugar of 449 LIQUOR RUNNER. There are other abnormal labs including leukocytosis, hypernatremia, elevated LFTs.
CT obtained showing acute bilateral PE, and possible bibasilar PNA. UA also may indicate UTI.
Patient is a DNR, this is confirmed with family.
He is admitted to IMU.
Past Medical History
Past Medical History: Other (see list below)
Social History
Tobacco: Non-smoker
Alcohol: None
Drug: None
Family History
Family History: Reviewed & Not Pertinent
Allergies / Home Medications
Allergies
Allergy/AdvReac Type Severity Reaction Status Date / Time
No Known Allergies Allergy Verified 06/07/23 07:32
Home Medications
�Medication �Instructions �Recorded �Confirmed �Last Taken �Type
metformin 1,000 mg tablet 1,000 mg PO BID@0800,1700 Diabetes 04/20/22 06/07/23 04/21/23 Rx
#60 tabs
aspirin 81 mg tablet,delayed 81 mg PO DAILY Blood Clot 04/21/23 06/07/23 04/21/23 History
release Prevention/Tx
acetaminophen 325 mg tablet 650 mg PO Q6HPRN PRN mild pain 06/07/23 06/07/23 Unknown History
(Tylenol)
insulin glargine 100 unit/mL 5 unit SC HS Diabetes 06/07/23 06/07/23 Unknown History
subcutaneous solution (Lantus
U-100 Insulin)
insulin lispro 100 unit/mL 4 unit SC AC Diabetes 06/07/23 06/07/23 Unknown History
subcutaneous solution
lorazepam 0.5 mg tablet 0.5 mg PO TID Mental Health/Anxiety 06/07/23 06/07/23 Unknown History
risperidone 0.5 mg disintegrating 0.5 mg PO BID Neurological 06/07/23 06/07/23 Unknown History
tablet Condition
therapeutic multivitamin 1 tab PO DAILY Supplement 06/07/23 06/07/23 Unknown History
Review of Systems
-
Unable to Obtain full review of systems at this time due to: Dementia and Acuity
Vitals / Labs / Diagnostic Testing
Vital Signs
Temp Pulse Resp BP Pulse Ox
102.2 F H 137 40 129/83 98
06/07/23 07:32 06/07/23 07:32 06/07/23 07:32 06/07/23 07:32 06/07/23 07:32
Lab Data
06/07/23 07:46
Laboratory Results
06/07/23
10:28
pH 7.46 H
pCO2 40
pO2 106
HCO3 28.4 H
O2 Delivery Level
Microbiology
06/07/23 07:46 Nasal Swab Influenza Types A & B (ADONIS) - Final
Negative for Influenza A & B, NAAT
Negative results must be combined with clinical observations
and patient history.
Nucleic Acid Amplification test (NAAT)performed on the
[facility] platform.
Diagnostic Testing:
Physical Exam
-
HEENT: Normocephalic, Anicteric and Other (dry MM, mouth breathing)
Cardiovascular: S1/S2, Regular Rhythm (tachycardic) and Peripheral Edema
Respiratory: Clear and Non-Labored Respirations
GI: Soft, Non Distended and Non Tender
Neurology: Awake and Other (not oriented, nonverbal, not following commands)
Skin: Warm and Dry
General: Respiratory Distress (mild), Poor Appetite and Other (agitated/chronically ill appearing)
Assessment
-
Patient is a 73 year old M with history of severe dementia, FTT sent from [facility] for fever. Patient is noted to be nonverbal on arrival to ER, but with persistent fever, tachycardia and tachypnea. In ER, patient is on 5L NC, BS 449 given
regular insulin 7 units n for a blood sugar of 449 LIQUOR RUNNER. There are other abnormal labs including leukocytosis, hypernatremia, elevated LFTs. CT obtained showing acute bilateral PE, and possible bibasilar PNA. UA also may indicate UTI. He is
admitted to IMU, we are consulted for hypoxemia in setting of severe sepsis.
Severe sepsis, without shock
UTI and/or PNA, source
Acute hypoxic respiratory failure, on NC
Acute PE RUL/RLL segments
RLL/LLL PNA
Leukocytosis
Anemia, Hb 11 baseline 13
Hypernatremia
Lactic acidosis
Elevated LFTs
Fever
Tachycardia
Conditions present LIQUOR RUNNER
Chronic pain syndrome
Basal Cell Carcinoma of Right Ear s/p Surgical Excision 08/2017
Failure to thrive in adult
Severe dementia
Other abnormalities of gait and mobility
Insulin dependant Type 2 diabetes mellitus without complications
History of CVA
Anxiety
Hyponatremia
Decubitus ulcer of sacral region, stage 1
Pressure ulcer of right hip
Plan
O2 aliya noted to be 90% during EMS, placed on 5L NC
Not known to be on home O2
No history of lung disease in past
CT chest reviewed showing acute bilateral PE, with superimposed bibasilar PNA
He is started on heparin and IV abx
Obtain US LE
Cultures pending, likely not able to produce sputum
NPO for now
High aspiration risk
Speech eval
states his diet was restricted at facility for unclear reason
Would evaluate swallow before initiating PO intake
Micro reviewed, no past
UA possibly indicating UTI as well
Cultured pending
Lactate elevated, fever ongoing
Severe sepsis, no hypotension, IVFs resuscitation
Will need eventual ECHO
Patient has clear signs of dehydration, bedbound status which likely resulted in current state with PE/infections
He has moderate stool burden on AXR, will need bowel regiment as well
IVFs
FTT history
May need chcf placement of PEG etc
Discussed code status with family, confirm DNR
Would need supervisor intermediates discussions if his overall care/QoL poor and feeding tube may be needed
Hold meds for oversedation
Prognosis guarded
We will follow
Diagnostic Data
CXR 06/07/23- Pneumonia in the medial right lung base.
AXR 06/07/23: moderate stoool burden
CT Chest 06/07/23- 1. Positive for thromboembolus in the right upper and lower lobe segmental and subsegmental branches.
2. Pneumonia in the right lower lobe. Mild pneumonia in the left lower lobe. Continued imaging follow-up to resolution is recommended.
3. Secretions/mucous plugging throughout the right middle and lower lobe bronchi.
HEAD 05/03/22- Old 3 cm left occipital infarct. There are no acute intracranial abnormalities. There is moderate diffuse cortical atrophy with mild nonspecific white matter changes as described above.
[2023-06-07 11:13] LABS: B-Hydroxybutyrate 0.59 mmol/L (0.02-0.27)
[2023-06-07 11:16] LABS: APTT 23.3 Sec (23.4-35.0)
[2023-06-07] MEDS: NOVOLOG FLEXPEN-LOW RESISTANCE SC (11:30)
[2023-06-07] MEDS: HEPARIN 5400 UNITS IV ×2 (11:41→19:46)
[2023-06-07] MEDS: HEPARIN 25000 UNITS/250 ML IV (11:43)
[2023-06-07 11:58] LABS: Lactic Acid 1.2 mmol/L (0.7-2.0)
--- NOTE | 2023-06-07 13:20 | PN.DE.MGMTRT ---
Insulin Management
- -
06/07/2023: Diabetes Management Consult
73 year old male well known to me from the office. Pt admitted from [place] for fever due to Pneumonia and Bilateral PE. He was recently discharged from after txt for failure to thrive. PMH includes: Basal Cell Carcinoma of Right Ear s/p Surgical
Excision in 08/2017, Severe Dementia, Failure to thrive, Chronic pain syndrome, CVA, Anxiety, Hyponatremia, Decubitus ulcer of sacral region, stage 1, Pressure ulcer of right hip and T2DM. Was taking Lantus 5 units and NovoLog 4 units AC with
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
Pt is seen in room with and Dtr at bedside. He has temporal wasting and appears to have lost significant amt of weight since he was last seen in the outpatient Diabetes office. states that pt has been w/c and bed bound with limited food
intake to liquids only and states that she thinks he is heavily medicated with Ativan and Risperdal.
Pt is awake and Alert but confused and unable to interview due severe cognitive impairment.
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 Cr 1.0, eGFR >60. He is Pt is currently NPO. Diabetes Regimen includes low corrective insulin only.
Will not add or make any changes to regimen at this time, will reassess in am and consider starting oral diabetes meds if tolerating diet.
Diabetes History
- -
Type of Diabetes: 2
Pre-Admission Diabetes Regimen
06/07/23
07:46
Creatinine 1.0
Insulin Pump Settings
IP Diabetes Regimen
06/07/23 06/07/23
07:46 07:58
Glucose 287 H
POC Glucose 264 H
Patient Education
--- NOTE | 2023-06-07 13:29 | PHA.VAN.IN ---
Assessment
- Assessment
Renal Function: Appears elevated from baseline (SCR 1 vs ~0.4, BUN 41 vs 8-12)
Concomitant Antimicrobials: cefepime
Plan
- Plan
Initial / Loading Dose: 1000mg - 06/06 09:20 PLUS additional 750mg x1
Maintenance Regimen: dosing by level
Monitoring: random
MRSA Screen: Ordered per protocol
Pharmacokinetics Vancomycin I
- -
Patient Age: 73
Patient Sex: Male
Vancomycin Day #: 1
Indication: Pulmonary/Respiratory
Requesting Provider: Dr. Padilla
Pertinent Antimicrobial Allergies:
NKDA
Height / Weight:
Height 5 ft 10 in
Actual Weight 67 kg
Pertinent Past Medical History: DM 2
- Vital Signs / Lab Results
Temp Pulse Resp BP Pulse Ox
101.1 F H 117 33 132/78 99
06/07/23 11:30 06/07/23 12:00 06/07/23 12:00 06/07/23 12:00 06/07/23 12:00
Lab Results - Hematology
06/07/23 06/07/23
07:46 11:33
WBC 21.4 H Cancelled
Lab Results - Chemistry
06/07/23
07:46
BUN 41 H
Creatinine 1.0
Estimated Creat Clear 64
Albumin 3.3 L
06/07/23 06/07/23
07:46 11:33
Lactic Acid 2.5 H 1.2
Lab Results - Urine
06/07/23
08:18
Urine Nitrite (Reflex) Negative
Leukocyte Esterase Rfl Negative
Urine WBC (Reflex) 0-2
Ur Squamous Epith Cells 16-20
Urine Bacteria (Reflex) Few A
Microbiology Results
06/07/23 07:46 Influenza Types A & B (ADONIS) - Final
Nasal Swab Negative for Influenza A & B, NAAT
Negative results must be combined with clinical observations
and patient history.
Nucleic Acid Amplification test (NAAT)performed on the
[employer] NOW platform.
--- NOTE | 2023-06-07 14:30 | PTCARENOTE ---
Received patient from ED. Patient nonverbal. Audible inspiratory/expiratory wheezing/grunting. Lungs with coarse rhonci. Patient unable to follow commands. Rectal temperature 101.2. ST heart rates 120-130's. Respirations 30's, BP 130/74. IV
heparin infusing at 1200 units/12mls/hr. IV fluids of sterile water infusing @ 75mls/hr. Patient INC of urine and stool. Family provided update.
--- NOTE | 2023-06-07 15:40 | WOUNDNOTE ---
WO RN note: ROOSEVELT pollack texted this service writer asking how to treat his very excoriated scrotum. Suggested antifungal ointment bid or petroleum barrier ointment and can add Vaseline gauze on top. Will see patient by the am.
--- NOTE | 2023-06-07 15:44 | CON.ID ---
Consultation
-
Date/Time Consultation Requested: 06/07/2023 1519
Date/Time Consultation Performed: 06/07/23 1545
Requesting Provider: Dr. Padilla
Performing Provider: Dr. Santiago
Reason for Consultation: Severe sepsis
Chief Complaint / Past History
History of Present Illness
Jb Shen is a 73-year-old man being evaluated at the request of Dr. Padilla in regards to severe sepsis. History is obtained from chart review, review of old records contained in the hospital EMR system, and history obtained from the
patient's and daughter who were at the bedside. Currently the patient is relatively obtunded, and cannot provide any history.
The patient presents to the ER here at [facility] on 06/07/2023 from [facility] for evaluation of fever. The patient was recently in inpatient at [facility] from 04/21 through 05/03/2023. During that hospitalization it
was felt that he had failure to thrive due to progression of underlying dementia, along with hyponatremia. According to the patient's he was initially transferred to rehab at [facility], but while they are he failed to progress, and
actually somewhat declined in functional status. He was ultimately transferred to the long-term care portion at [facility]. Over the last 24 hours he has developed fever, along with tachycardia. He has not been observed to have significant
coughing.
Past History
Additional Past Medical History:
Advanced dementia
Chronic pain syndrome
Hx Right ear basal cell carcinoma
DM
Hx CVA
Anxiety
Hyponatremia
Past Surgical History: None
Allergy History:
No Known Allergies Allergy (Verified 06/07/23 07:32)
Medications Reviewed: Yes
Current Antibiotics:
Vancomycin (dosed per pharmacy
Cefepime 2 g IV every 8 hours
Social History
Tobacco: Former Smoker
Alcohol: None
Drug: None
Personal:
Living: With Family
Employment: Retired
Family History
Family History: Not Pertinent
Review of Systems
Review of Systems
Unobtainable
Vital Signs
Temp Pulse Resp BP Pulse Ox
101.2 F H 124 38 117/73 93
06/07/23 14:27 06/07/23 13:45 06/07/23 13:45 06/07/23 13:00 06/07/23 14:27
Physical Exam
Physical Exam
Constitutional: Acutely Ill and Chronically Ill
Head: Normocephalic
Eyes: Pupils Equal, Pupils Round, No Conjunctival Hemorrhage and Sclera Anicteric
Oral: No Thrush, No Ulcers and Other (Oral mucosa dry)
Cardiovascular: S1/S2; Negative S3/S4
Pulmonary: Wheezes, Coarse and Other (Tachypneic); Negative Rales or Rhonchi
Gastrointestinal: Soft, Non Distended, Normal Bowel Sounds, No Rebound and No Guarding
Genito-Urinary: Negative Toro
Extremities: Edema; Negative Cyanosis, Erythema, Splinter Hemorrhage or Venous Insufficiency
Skin: Warm and Dry; Negative Rash or Jaundice
Wound: Other (Inferior scrotal excoriation noted. No obvious scrotal swelling.)
Neurological: Other (Responsive to touch and pain.)
.
Lab / Diagnostic Study Results
Abs Immat Gran (auto) 0.2 10^3/uL (0-0.05) H 06/07/23 07:46
Absolute Neuts (auto) 18.4 10^3/uL (1.4-6.5) H 06/07/23 07:46
Absolute Lymphs (auto) 1.2 10^3/uL (1.2-3.4) 06/07/23 07:46
Absolute Monos (auto) 1.6 10^3/uL (0.1-0.6) H 06/07/23 07:46
Absolute Basos (auto) 0.0 10^3/uL (0-0.2) 06/07/23 07:46
Immature Gran % 0.8 % (0-0.5) H 06/07/23 07:46
Neutrophils % 85.9 % (42.2-75.2) H 06/07/23 07:46
Lymphocytes % 5.7 % (20.5-51.1) L 06/07/23 07:46
Monocytes % 7.5 % (1.7-9.3) 06/07/23 07:46
Eosinophils % 0.0 % (0-6) 06/07/23 07:46
Basophils % 0.1 % (0-2) 06/07/23 07:46
Lactic Acid 1.2 mmol/L (0.7-2.0) 06/07/23 11:33
Ur Squamous Epith Cells 16-20 /LPF (Few) 06/07/23 08:18
Microbiology Results
Micro:
06/07/23 08:18 Blood Culture - Pending
Blood/Venous
06/07/23 07:46 Influenza Types A & B (ADONIS) - Final
Nasal Swab Negative for Influenza A & B, NAAT
Negative results must be combined with clinical observations
and patient history.
Nucleic Acid Amplification test (NAAT)performed on the
[employer] NOW platform.
06/07/23 07:46 Blood Culture - Pending
Blood/Venous
Imaging:
06/07/23 CT chest: Positive for thromboembolus in the right upper and lower lobe segmental and subsegmental branches. Infiltrate is seen in the right lower lobe. Mild infiltrate noted in the left lower lobe. There is secretions and mucous plugging
throughout the right middle and lower lobe bronchi.
Assessment / Plan
PE
Suspected aspiration pneumonia
Leukocytosis
Hypernatremia
Lactic acidosis
Transaminitis
Advanced dementia
Chronic pain syndrome
Hx Right ear basal cell carcinoma
DM
Hx CVA
Anxiety
Hyponatremia
Recommendations:
Continue with empiric cefepime and vancomycin for the present.
Decrease cefepime to 2 g IV every 12 hours.
Add metronidazole 500 mg IV every 8 hours.
Fluid repletion.
Monitor white count and temperature curve.
Monitor Vanco levels.
Aspiration precautions.
Follow cultures.
[2023-06-07 16:05] LABS: Glucose - Point of Care 291 mg/dl (70-99)
[2023-06-07 16:08] LABS: Hematocrit 35.5 % (39.0-52.0); Hemoglobin 11.4 g/dL (13.0-18.0); Mean Corp Hgb Conc. 32.1 g/dL (33.0-37.0); Mean Corpuscular Volume 87.2 fL (80.0-94.0); Mean Platelet Volume 10.9 fL (7.4-10.4); Platelet Count 343 10^3/uL (130-400); Red Blood Cell Count 4.07 10^6/uL (4.70-6.10); Red Cell Dist. Width 14.7 % (11.5-14.5); White Blood Cell Count 32.5 10^3/uL (4.8-10.8)
[2023-06-07] MEDS: VANCOCIN 150 IV (16:11)
[2023-06-07] MEDS: TYLENOL/FEVERALL 325 MG RECTAL (16:11)
[2023-06-07 16:17] LABS: Ammonia < 9 umol/L (9-30)
[2023-06-07 16:29] LABS: Blood Urea Nitrogen 31 mg/dl (9-20); Calcium 9.3 mg/dl (8.4-10.2); Carbon Dioxide 27 mmol/L (22-30); Chloride 116 mmol/L (98-107); Estimated Creatinine Clearance 93 ml/min; Glucose 294 mg/dl (70-99); Potassium 3.4 mmol/L (3.5-5.1); Sodium 149 mmol/L (135-145); eGFR > 60.00
[2023-06-07] MEDS: NOVOLOG FLEXPEN-LOW RESISTANCE 3 UNITS SC (16:32)
[2023-06-07 17:00] LABS: TSH 0.64 uIU/ml (0.47-4.68)
[2023-06-07] MEDS: FLAGYL 500 MG 100 IV (17:13)
[2023-06-07] MEDS: MAXIPIME 2000 MG IV (17:13)
[2023-06-07] MEDS: STERILE WATER FOR INJECTION 10 ML IV (17:13)
[2023-06-07 17:19] LABS: Vitamin B12 813 pg/ml (239-931)
--- NOTE | 2023-06-07 18:00 | PTCARENOTE ---
Dr. Padilla notified for orders and lab updates. Patient breathing more labored, respirations up to 40's, heart rates up to 140-150's. O2 increased to 6L n/c. Patient temperature remains elevated. Rapid response called.
[2023-06-07] MEDS: MORPHINE SULFATE 2 MG IV (18:52)
[2023-06-07] MEDS: KCL 160 MEQ IV (18:53)
[2023-06-07 19:10] LABS: Lactic Acid 1.5 mmol/L (0.7-2.0)
[2023-06-07 19:15] LABS: APTT 49.8 Sec (23.4-35.0)
[2023-06-07 19:22] LABS: Blood Urea Nitrogen 30 mg/dl (9-20); Calcium 9.4 mg/dl (8.4-10.2); Carbon Dioxide 30 mmol/L (22-30); Chloride 111 mmol/L (98-107); Estimated Creatinine Clearance 93 ml/min; Glucose 310 mg/dl (70-99); Potassium 3.4 mmol/L (3.5-5.1); Sodium 151 mmol/L (135-145); eGFR > 60.00
--- NOTE | 2023-06-07 19:22 | W.PN.UPDATE ---
Update Note
Progress Note Update
Cross coverage update
Rapid response agonal breathing tachycardia tachypnea.
73M progressive Dementia DM presents from [facility] with fever tachycardia confusion found to have PE possible Sepsis PNA Hypernatremia Hyperglycemia non-anion gap. ECHO noted Heart Failure with reduced ejection fraction 25%. Bedside
evaluation noted agonal breathinng tachycardia and tachypnea as above, patient otherwise saturating well 96%, blood pressure stable.
Physical Exam
General: cachectic
HEENT: Throat clear. PERRLA Normocephalic atraumatic
NECK: Supple. No JVD Carotid Bruits
RESPIRATORY: Lungs clear to auscultation. Tachypneic. Agonal breathing
CVS: Tachy
ABDOMEN: Soft, non-tender. No distension. BS+/normal.
EXTREMITIES: No peripheral cyanosis or edema.
ELECTRIC RANGE PREPARER: Nonverbal
Sepsis PNA
Pulmonary Embolism
Hypernatremia
Hyperglycemia non-anion gap
Heart Failure reduced Ejection fraction
Troponin elevation suspect non-ischemic related to sepsis and PE (Rectal ASA as per Cardio administered once)
Transaminitis likely d/t sepsis/PE
LIVAN Prince at bedside confirmed DNR/DNI status
BIPAP started for comfort, once morphine 2mg IV for dyspnea
Abd US appreciated no acute abn's
Tylenol rectal 650 mg Q6HPRN, Ice packs fever control (consider IV tylenol if fever persists)
Insulin gtt with IVF support at reduced rate d/t HFrEF and Hypernatremia
Fingerstick Q1H, BMP Q4H
Nephro eval requested
Home Scheduled ativan converted to prn
Patient remains in IMU for now, potential transfer to ICU if further decompensates
Discussed with Nurse, ICU nurse, Patient's Niki, son Jb, son Roger, [id number] Sharon
--- NOTE | 2023-06-07 20:08 | W.PN.UPDATE ---
Update Note
Progress Note Update
Received TT from attending Dr Padilla
Asked to place order for ASA rectal x1 now after his discussion with cardiology.
Order placed
[2023-06-07] MEDS: NOVOLIN R INSULIN INFUSION 100 IV (20:20)
--- NOTE | 2023-06-07 20:31 | PTCARENOTE ---
Addendum entered by Ward Pérez RN 06/07/23 22:54:
Blood sugar <250. 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 insulin gtt titrated per protocol. pt continues to be febrile, ice packs applied. room temp decreased.
Original Note:
Received patient after rapid response ended at 1850. During Rapid response: EKG, multiple labs, morphine and potassium given via MAR, Bipap placed 14/5 10L. Pt obtunded, respirations labored rate 40-50s on bipap. Sp02 96-98%. BP 134/75 (93), HR
130-140s. febrile. Heparin rate adjusted per protocol. Long discussion with family and Dr. Cuellar. Pt remains DNR/DNI. Transfer to ICU cancelled. Insulin gtt protocol initiated on IMU. New IV placed. Plan to re-draw BMP after IV potassium complete.
Multiple family members at bedside; aware to use call gong if needed.
[2023-06-07] MEDS: NSS with KCL 20 MEQ 1000 IV (21:13)
[2023-06-07 21:51] LABS: Glucose - Point of Care 249 mg/dl (70-99)
[2023-06-07 22:12] LABS: Blood Urea Nitrogen 29 mg/dl (9-20); Calcium 9.1 mg/dl (8.4-10.2); Carbon Dioxide 27 mmol/L (22-30); Chloride 118 mmol/L (98-107); Estimated Creatinine Clearance 93 ml/min; Glucose 268 mg/dl (70-99); Potassium 3.5 mmol/L (3.5-5.1); Sodium 151 mmol/L (135-145); eGFR > 60.00
[2023-06-07] MEDS: ASPIRIN 300 MG RECTAL (22:33)
[2023-06-07 22:39] LABS: Glucose - Point of Care 216 mg/dl (70-99)
[2023-06-07] MEDS: D5/0.45%NSS with KCL 20 MEQ 1000 IV (23:43)
[2023-06-08] VITALS (12 sets, daily range): BP systolic 98–157; BP diastolic 69–89; PULSE 4–136; BMI 18.8
[2023-06-08 00:16] LABS: Glucose - Point of Care 176 mg/dl (70-99)
[2023-06-08 01:19] LABS: Glucose - Point of Care 189 mg/dl (70-99)
[2023-06-08] MEDS: FLAGYL 500 MG 100 IV ×2 (02:08→11:00)
[2023-06-08] MEDS: TYLENOL/FEVERALL 650 MG RECTAL (02:21)
[2023-06-08 02:24] LABS: Glucose - Point of Care 169 mg/dl (70-99)
[2023-06-08 02:28] LABS: % Basophils 0.2 % (0-2); % Immature Granulocytes 0.7 % (0-0.5); % Lymphocytes 4.2 % (20.5-51.1); % Monocytes 8.8 % (1.7-9.3); % Neutrophils 86.1 % (42.2-75.2); Absolute Basophils 0.1 10^3/uL (0-0.2); Absolute Immature Granulocytes 0.2 10^3/uL (0-0.05); Absolute Lymphocytes 1.3 10^3/uL (1.2-3.4); Absolute Monocytes 2.7 10^3/uL (0.1-0.6); Absolute Neutrophils 26.6 10^3/uL (1.4-6.5); Hemoglobin 11.2 g/dL (13.0-18.0); Mean Corp Hgb Conc. 31.1 g/dL (33.0-37.0); Mean Corpuscular Hgb 27.7 pg (27.0-31.0); Mean Corpuscular Volume 89.1 fL (80.0-94.0); Mean Platelet Volume 10.9 fL (7.4-10.4); Nucleated Red Blood Cells % 0 % (-); Platelet Count 345 10^3/uL (130-400); Red Blood Cell Count 4.04 10^6/uL (4.70-6.10); Red Cell Dist. Width 14.7 % (11.5-14.5); White Blood Cell Count 30.9 10^3/uL (4.8-10.8)
[2023-06-08 02:38] LABS: APTT 65.1 Sec (23.4-35.0)
[2023-06-08] MEDS: HEPARIN 2700 UNITS IV (02:47)
[2023-06-08 02:53] LABS: Blood Urea Nitrogen 29 mg/dl (9-20); Calcium 9.5 mg/dl (8.4-10.2); Carbon Dioxide 30 mmol/L (22-30); Chloride 117 mmol/L (98-107); Estimated Creatinine Clearance 93 ml/min; Glucose 172 mg/dl (70-99); Potassium 3.7 mmol/L (3.5-5.1); Sodium 154 mmol/L (135-145); eGFR > 60.00
[2023-06-08 02:57] LABS: Vancomycin Random 6.4 ug/ml
[2023-06-08 03:21] LABS: Glucose - Point of Care 156 mg/dl (70-99)
[2023-06-08 05:57] LABS: Glucose - Point of Care 183 mg/dl (70-99)
[2023-06-08] MEDS: HEPARIN 25000 UNITS/250 ML IV (06:16)
[2023-06-08] MEDS: MAXIPIME 2000 MG IV (06:20)
[2023-06-08] MEDS: STERILE WATER FOR INJECTION 10 ML IV (06:21)
[2023-06-08 06:35] LABS: ALT (SGPT) 130 U/L (0-50); AST (SGOT) 104 U/L (17-59); Albumin 2.8 g/dl (3.5-5.0); Alkaline Phosphatase 120 U/L (38-126); Blood Urea Nitrogen 30 mg/dl (9-20); Calcium 9.2 mg/dl (8.4-10.2); Carbon Dioxide 29 mmol/L (22-30); Chloride 120 mmol/L (98-107); Estimated Creatinine Clearance 91 ml/min; Glucose 176 mg/dl (70-99); Magnesium 1.7 mg/dl (1.6-2.3); Potassium 3.7 mmol/L (3.5-5.1); Sodium 153 mmol/L (135-145); Total Bilirubin 0.7 mg/dl (0.2-1.3); eGFR > 60.00
--- NOTE | 2023-06-08 07:55 | PHA.VAN.FU ---
Vancomycin Assessment / Plan
- Assessment
Renal Function: Stable
WBC's are: Trending Down
In the past 24 hrs, patient has been: Febrile
Concomitant Antimicrobials: cefepime, metronidazole
- Assessment - Therapeutic Drug Monitoring
Random Level: 6.4 - drawn ~10H after previous dose of 750mg (split load of 1750mg)
- Dosing Plan
Dosing by Level: Re-dose today (Vanc 1000mg now then 1000mg at 1800)
Patient likely requires Q12H interval based on today's level and estimated CrCl
SCR & BUN still remain slightly elevated from baseline - will keep dose by level for now to ensure clearing appr
- Monitoring Plan
Random Level: 06/08 0600
- Follow Up
Pharmacy will continue to follow.
Vancomycin Follow UP
- -
Patient Age: 73
Patient Sex: Male
Vancomycin Day #: 2
Indication: Pulmonary/Respiratory
Requesting Provider: Dr. Padilla / Pamela
Pertinent Antimicrobial Allergies:
NKDA
Height / Weight:
Height 6 ft 2 in
Actual Weight 66.224 kg
IBW in k.2
Pertinent Past Medical History: DM 2, BMI 18.7
- Vital Signs / Lab Results
Temp Pulse Resp BP Pulse Ox
99.2 F 126 30 140/88 100
06/08/23 04:14 06/08/23 06:15 06/08/23 06:15 06/08/23 06:00 06/08/23 06:15
Lab Results - Hematology
06/07/23 06/07/23 06/07/23
07:46 11:33 15:50
WBC 21.4 H Cancelled 32.5 H
06/08/23
02:11
WBC 30.9 H
Lab Results - Chemistry
06/07/23 06/07/23 06/07/23
07:46 15:50 18:49
BUN 41 H 31 H 30 H
Creatinine 1.0 0.7 0.7
Estimated Creat Clear 64 93 93
Albumin 3.3 L
06/07/23 06/08/23 06/08/23
21:37 00:00 02:11
BUN 29 H Cancelled 29 H
Creatinine 0.7 Cancelled 0.7
Estimated Creat Clear 93 Cancelled 93
Albumin
06/08/23
05:45
BUN 30 H
Creatinine 0.7
Estimated Creat Clear 91
Albumin 2.8 L
06/07/23 06/07/23 06/07/23
07:46 11:33 18:30
Lactic Acid 2.5 H 1.2 1.5
Lab Results - Urine
06/07/23
08:18
Urine Nitrite (Reflex) Negative
Leukocyte Esterase Rfl Negative
Ur Squamous Epith Cells 16-20
Microbiology Results
06/07/23 07:46 Blood Culture - Preliminary
Blood/Venous No Growth in 24 hours- Final report to follow
06/07/23 15:50 Nasal Screen MRSA (PCR) - Final
Nose Staph aureus MRSA
06/07/23 07:46 Influenza Types A & B (ADONIS) - Final
Nasal Swab Negative for Influenza A & B, NAAT
Negative results must be combined with clinical observations
and patient history.
Nucleic Acid Amplification test (NAAT)performed on the
[employer] platform.
Therapeutic Drug Monitoring
Random Vancomycin 6.4 ug/ml 06/08/23 02:11
--- NOTE | 2023-06-08 08:13 | CON.CAR ---
Addendum entered and electronically signed by Kit Salmeron MD 06/08/23 13:27:
I saw and examined the patient.
The Clinical Unit Coordinator's note was reviewed and I agree with the note.
Comment:
GEN: No distress, opens eyes, not following commands
HEENT: supple, anicteric, mmm
LUNGS: bilat rhonchi
CV: Reg, tachy, S1/S2, 1/6 syst LSB, no gallop
ABD: soft, BS+, NT/ND
EXT: No edema
NEURO: Gross non-focal
SKIN: No rash
Plan:
73-year-old man with advanced dementia, [facility]p resident presents with progressive respiratory failure, tachypnea, troponin of 1.4, marked hyponatremia, pneumonia, pulmonary embolism, admitted new cardiomyopathy with a EF of 25%. We are asked
to help manage his cardiac issues including his newly reduced depressed ejection fraction and abnormal troponin.
At this point I agree with DNR/DNI. He will continue BiPAP for respiratory support. He is not a candidate for catheterization at this time. I will continue conservative therapy and agree with plans to consider comfort care. His prognosis is very
poor.
I suspect his abnormal troponin is a combination of nonischemic myocardial injury, pneumonia, pulmonary embolism, and possible coronary artery disease.
Will continue broad-spectrum antibiotics and aspirin.
Continue IV heparin.
Could consider dose of IV Lasix as I suspect he is also volume overloaded with acute heart failure with reduced ejection fraction.
Will await family decision regarding level of care.
He has multiorgan system failure and prognosis is very poor.
Addendum entered and electronically signed by Maria Isabel Harris PA-C 06/08/23 11:09:
called back up to see patient to discuss with patient's , sons, and daughter in law at bedside. again discussed goals of care, and consideration for transition to comfort care. family to discuss amongst each other and let nursing know of
decision. 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
Original Note:
Consultation
Consultation Request
Date/Time Consultation Performed: 06/08/23
Requesting Provider: Dr. Padilla
Performing Provider: Maria Isabel Harris PA-C for Dr. Salmeron
Reason for Consultation: new CM, elevated troponin
Medical History
-
Chief Complaint: fever
History of Present Illness:
Patient is a 73 yo M with PMH of progressive dementia, DM2, who was recently admitted to for FTT, weakness 04/21-05/04/23. He was discharged to [facility]. Since there family reports concern about patient being overmedicated, and
that he has continued to decompensate. He was sent back to ER 06/07/23 due to fever. On arrival with leukocytosis and evidence of RLL PNA and R sided PE by chest CT. He is hypernatremic in addition. Overnight he was a rapid response, requiring bipap.
He remains tachycardic and with labored breathing. Echo showed new EF 25% with and anterior and septal akinesis. Trop peaked at 1.4 and trending down. Cardiology consulted for evaluation.
PMH:
Admission to 04/21-05/04/23 for weakness/FTT
Dementia
Diabetes
Past Medical History
Past Medical History: Other (in HPI)
Social History
Personal:
Living: Custodial (after recent hospitalization)
Employment: Retired
Allergies / Home Medications
Allergy/AdvReac Type Severity Reaction Status Date / Time
No Known Allergies Allergy Verified 06/07/23 07:32
�Medication �Instructions �Recorded �Confirmed �Type
metformin 1,000 mg tablet 1,000 mg PO BID@0800,1700 Diabetes 04/20/22 06/07/23 Rx
#60 tabs
aspirin 81 mg tablet,delayed 81 mg PO DAILY Blood Clot 04/21/23 06/07/23 History
release Prevention/Tx
acetaminophen 325 mg tablet 650 mg PO Q6HPRN PRN mild pain 06/07/23 06/07/23 History
(Tylenol)
insulin glargine 100 unit/mL 5 unit SC HS Diabetes 06/07/23 06/07/23 History
subcutaneous solution (Lantus
U-100 Insulin)
insulin lispro 100 unit/mL 4 unit SC AC Diabetes 06/07/23 06/07/23 History
subcutaneous solution
lorazepam 0.5 mg tablet 0.5 mg PO TID Mental Health/Anxiety 06/07/23 06/07/23 History
risperidone 0.5 mg disintegrating 0.5 mg PO BID Neurological 06/07/23 06/07/23 History
tablet Condition
therapeutic multivitamin 1 tab PO DAILY Supplement 06/07/23 06/07/23 History
Review of Systems
-
History Source: Family
All other systems: Negative unless noted
Physical Exam
Vital Signs
Temp Pulse Resp BP Pulse Ox
100.1 F 126 30 140/88 100
06/08/23 07:00 06/08/23 06:15 06/08/23 06:15 06/08/23 06:00 06/08/23 06:15
Lab Results
06/08/23 02:11
Troponin I 1.080 ng/ml H* 06/08/23 02:11
Physical Exam
General: Other (tachypneic and labored breathing, on bipap)
HEENT: Normocephalic, Anicteric and Moist Mucous Membranes
Respiratory: Rhonchi
Cardiac: S1/S2, Regular Rhythm and Other (tachycardic)
GI: Soft, Non Tender, Non Distended and Normal Bowel Sounds
Musculoskeletal: No Clubbing, No Cyanosis and No Edema
Skin: Warm and Dry
Neuro: Other (obtunded)
Impression / Plan
-
Primary Silk Screener: none
Assessment:
Presentation with fever
Sepsis
RLL PNA
R PE
Acute hypoxic respiratory failure, requiring biPAP
New cardiomyopathy, EF 25%, unknown etiology
Concern for acute HFrEF
Elevated troponin
Sinus tachycardia
Transaminitis
Hypernatremia
Admission to 04/21-05/04/23 for weakness/FTT
Advanced dementia
Diabetes with Hyperglycemia
Anxiety
DNR code status
ECHO 06/07/23: EF 25%, mid anteroseptal, mid septal, mid anterior, apical akinesis, stage I diastolic dysfunction, mild to moderate TR, PAP 34 mmHg
Plan:
-Patient presented with fever. Noted to have right lower lobe pneumonia as well as right-sided PE with mucous plugging by chest CT. covid and flu negative. He had rapid response overnight and is now on BiPAP.
-Echocardiogram completed 06/06 shows EF 25%, and troponin peaked at 1.4. reviewed results with patient's son 06/06.
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
-Discussed goals of care with patient's son at bedside. Appears appropriate for comfort/hospice care at this time. He expressed he believes he and family would want patient to be kept comfortable, however will discuss further with mom and siblings
once they arrive. Patient is a DNR CODE STATUS at present.
-for now, he is on asa and IV heparin
-sinus tach on review of tele
-consider check proBNP. no evidence of acute CHF by chest CT 06/06
-BPs stable
-d/w nursing
Data Reviewed
-
EKG: Tracing Personally Visualized and interpreted
CT Scan: Report Reviewed by me
Medical Tests (Nuc Med, Echo etc): Report Reviewed by me
Labs: Labs Reviewed by me
Old Records: Reviewed
[2023-06-08] MEDS: VANCOCIN 200 IV (08:34)
[2023-06-08 08:35] LABS: Glucose - Point of Care 244 mg/dl (70-99)
[2023-06-08 08:49] LABS: Glycohemoglobin (HgbA1c) 7.5 % (4.0-5.6)
--- NOTE | 2023-06-08 09:13 | W.PN.PUL3 ---
Today's Communication / Plan
-
Resp distress with BIPAP in place, RR in 30-40s
He is DNR/DNI and on maximal medical treatment
I discussed comfort focused care with patient's family as I think his clinical deterioration is clear
Stress to them to make decision SABRINA
Prognosis poor, discussed with care team
Assessment
-
Patient is a 73 year old M with history of severe dementia, FTT sent from [facility] for fever. Patient is noted to be nonverbal on arrival to ER, but with persistent fever, tachycardia and tachypnea. In ER, patient is on 5L NC, BS 449 given
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 There are other abnormal labs including leukocytosis, hypernatremia, elevated LFTs. CT obtained showing acute bilateral PE, and possible bibasilar PNA. UA also may indicate UTI. He is
admitted to IMU, we are consulted for hypoxemia in setting of severe sepsis.
Severe sepsis, without shock
UTI and/or PNA, source
Acute hypoxic respiratory failure, on NC
Acute PE RUL/RLL segments
RLL/LLL PNA
Leukocytosis
Anemia, Hb 11 baseline 13
Hypernatremia
Lactic acidosis
Elevated LFTs
Fever
Tachycardia
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
Chronic pain syndrome
Basal Cell Carcinoma of Right Ear s/p Surgical Excision 08/2017
Failure to thrive in adult
Severe dementia
Other abnormalities of gait and mobility
Insulin dependant Type 2 diabetes mellitus without complications
History of CVA
Anxiety
Hyponatremia
Decubitus ulcer of sacral region, stage 1
Pressure ulcer of right hip
Plan
O2 aliya noted to be 90% during EMS, placed on 5L NC
Not known to be on home O2
No history of lung disease in past
Events ON noted, now on BIPAP-he is DNR/DNI
CT chest reviewed showing acute bilateral PE, with superimposed bibasilar PNA
He is started on heparin and IV abx
Cultures pending, likely not able to produce sputum
NPO for now
High aspiration risk
Speech eval
states his diet was restricted at facility for unclear reason
Would evaluate swallow before initiating PO intake
Micro reviewed, no past
UA possibly indicating UTI as well
Cultured pending
Lactate elevated, fever ongoing
Severe sepsis, no hypotension, IVFs resuscitation
Will need eventual ECHO
Patient has clear signs of dehydration, bedbound status which likely resulted in current state with PE/infections
He has moderate stool burden on AXR, will need bowel regiment as well
IVFs
FTT history
May need halfway placement of PEG etc
Discussed code status with family, confirm DNR
I re-discussed his appearance now is not good and unsustainable with family at bedside
I would encourage discussions now on comfort if he continues to deteriorate
Prognosis poor
Diagnostic Data
CXR 06/07/23- Pneumonia in the medial right lung base.
AXR 06/07/23: moderate stoool burden
CT Chest 06/07/23- 1. Positive for thromboembolus in the right upper and lower lobe segmental and subsegmental branches.
2. Pneumonia in the right lower lobe. Mild pneumonia in the left lower lobe. Continued imaging follow-up to resolution is recommended.
3. Secretions/mucous plugging throughout the right middle and lower lobe bronchi.
HEAD 05/03/22- Old 3 cm left occipital infarct. There are no acute intracranial abnormalities. There is moderate diffuse cortical atrophy with mild nonspecific white matter changes as described above.
Subjective Data
-
Date of Service:
Date of Service: June 08, 2023
Chief Complaint: Pulmonary Follow Up
Subjective:
events ON noted, now on BIPAP
resp distress noted while on BIPAP
family at bedside
RR 30-40s
Objective Data
Data Reviewed
Vital Signs / I&O / Oxygen:
Vital Signs
Temp Pulse Resp BP Pulse Ox
100.1 F 126 30 140/88 100
06/08/23 07:00 06/08/23 06:15 06/08/23 06:15 06/08/23 06:00 06/08/23 06:15
Intake and Output
06/07/23 06/08/23 06/09/23
06:59 06:59 06:59
Intake Total 950 / 950
Balance 950 / 950
SaO2 100
Nasal Cannula flow liters per 4
minute
Physical Exam
General: Respiratory Distress (moderate-severe), Poor Appetite and Other (unresponsive)
HEENT: Normocephalic, Anicteric and Moist Mucous Membranes
Cardiovascular: S1-S2 and Regular Rhythm
Respiratory: Clear and Accessory Resp Muscle Use (moderate, tachypneic while on BIPAP)
GI: Soft, Non Distended and Non Tender
Neurology: Unresponsive
Skin: Warm and Dry
Labs/Micro/Reports
Lab Data
06/08/23 02:11
Laboratory Results
06/07/23 06/07/23 06/07/23
10:28 10:48 18:49
APTT 23.3 L 49.8 H
pH 7.46 H
pCO2 40
pO2 106
HCO3 28.4 H
O2 Delivery Level
06/08/23
02:11
APTT 65.1 H
pH
pCO2
pO2
HCO3
O2 Delivery Level
Microbiology
06/07/23 08:18 Blood/Venous Blood Culture - Preliminary
No Growth in 24 hours- Final report to follow
06/07/23 07:46 Blood/Venous Blood Culture - Preliminary
No Growth in 24 hours- Final report to follow
06/07/23 15:50 Nose Nasal Screen MRSA (PCR) - Final
Staph aureus MRSA
06/07/23 07:46 Nasal Swab Influenza Types A & B (ADONIS) - Final
Negative for Influenza A & B, NAAT
Negative results must be combined with clinical observations
and patient history.
Nucleic Acid Amplification test (NAAT)performed on the
[employer] platform.
--- NOTE | 2023-06-08 10:26 | WOUNDNOTE ---
SACRAL/COCCYX/BUTTOCKS
--- NOTE | 2023-06-08 10:30 | WOUNDNOTE ---
[facility] RN note: Patient admitted with sepsis, pneumonia. Patient admitted from [facility]. Comfort measures to be discussed as per nursing.
See H&P for complete history.
PMH: dementia, failure to thrive.
Wound Location and type/assessment: Patient admitted with: sacral/coccyx DTI, purple ecchymotic with linear serous blister L sacral/buttocks. Bilateral hip stage 1 redness. Heels blanchable red. Scrotum with open dermal skin and redness r/t
moisture (small nodule appearing lesion noted lower scrotum). Perianal/joaquina MASD. R lower chest suspect medical adhesive skin damage (previous EKG lead?). Nasal bridge appears red through Exuderm dressing. Patient with continual Bipap currently.
Appetite: NPO.
Pressure redistribution devices in place: Centrella Max air bed. Heels off bed with pillow.
Plan: Patient incontinent of moderate soft loose brown stool and copious amount of urine. Joaquina care given, linens changed and patient turned with help from ROOSEVELT Keller and also PCT May. Silicone border foam changed on sacrum. Silicone border foam
applied to bilateral hips and R chest. Foam dressing applied heels. Vaseline gauze Vaseline gauze applied to scrotum.
Will confirm orders with hospitalist and discussed with ROOSEVELT Keller.
Care plan to be updated and will follow as needed.
Note to case management of equipment requested for discharge: air mattress at [facility] if not already in place.
--- NOTE | 2023-06-08 10:45 | WOUNDNOTE ---
[facility] RN note: Patient admitted with sepsis, pneumonia. Patient admitted from [facility]. Comfort measures to be discussed as per nursing.
See H&P for complete history.
PMH: dementia, failure to thrive.
Wound Location and type/assessment: Patient admitted with: sacral/coccyx DTI, purple ecchymotic with linear serous blister L sacral/buttocks. Bilateral hip stage 1 redness. Heels blanchable red. Scrotum with open dermal skin and redness r/t
moisture (small nodule appearing lesion noted lower scrotum). Perianal/joaquina MASD. R lower chest suspect medical adhesive skin damage (previous EKG lead?). Nasal bridge appears red through Exuderm dressing. Patient with continual Bipap currently.
Appetite: NPO. Patient extremely thin.
Pressure redistribution devices in place: Centrella Max air bed. Heels off bed with pillow.
Plan: Patient incontinent of moderate soft loose brown stool and copious amount of urine. Joaquina care given, linens changed and patient turned with help from ROOSEVELT Keller and also PCT May. Silicone border foam changed on sacrum. Silicone border foam
applied to bilateral hips and R chest. Foam dressing applied heels. Vaseline gauze Vaseline gauze applied to scrotum. Patient is at high risk for additional skin breakdown despite preventative measures in place d/t overall medical condition.
Updated and confirmed orders with Dr. Padilla and discussed with ROOSEVELT Keller.
Care plan to be updated and will follow as needed.
Note to case management of equipment requested for discharge: air mattress at [facility] if not already in place.
[2023-06-08] MEDS: NOVOLOG FLEXPEN-LOW RESISTANCE 3 UNITS SC (11:58)
[2023-06-08] MEDS: D5/0.45%NSS with KCL 20 MEQ 1000 IV (11:59)
[2023-06-08 12:11] LABS: Glucose - Point of Care 281 mg/dl (70-99)
--- NOTE | 2023-06-08 12:55 | PN.DE.MGMTRT ---
Insulin Management
- -
: Diabetes Management Consult Follow up
Patient admitted from [facility] for fever due to Pneumonia and Bilateral PE. He was recently discharged from after txt for failure to thrive. PMH includes: Basal Cell Carcinoma of Right Ear s/p Surgical Excision in 08/2017, Severe Dementia, Failure to
thrive, Chronic pain syndrome, CVA, Anxiety, Hyponatremia, Decubitus ulcer of sacral region, stage 1, Pressure ulcer of right hip and T2DM. Was taking Lantus 5 units and NovoLog 4 units AC with Metformin 1000mg BID prior to admission.
Pt is seen in room with and two sons at bedside. states that pt has been w/c and bed bound with limited food intake to liquids only and states that she thinks he is heavily medicated with Ativan and Risperdal.
Patient is on Bipap, not arousable. I spoke with patients regarding his diabetes care. She stated they are considering comfort care.
Recent A1C 6.5% on 04/21/23, Glucose was 287 on admission, Cr .7, eGFR >60. He is Pt is currently NPO. He was on insulin infusion overnight but has been stopped. Will order 5 units lantus now and low corrective insulin Q 6 hours
Diabetes History
- -
Type of Diabetes: 2 requiring insulin
Pre-Admission Diabetes Regimen
06/07/23 06/07/23 06/07/23
15:50 18:49 21:37
Creatinine 0.7 0.7 0.7
06/08/23 06/08/23 06/08/23
00:00 02:11 05:45
Creatinine Cancelled 0.7 0.7
06/08/23 06/08/23 06/08/23
10:00 14:00 18:00
Creatinine Cancelled Cancelled Cancelled
Lab Results
Hemoglobin A1c 7.5 % (4.0-5.6) H 06/08/23 02:11
Insulin Pump Settings
IP Diabetes Regimen
06/07/23 06/07/23 06/07/23
15:50 15:54 18:49
Glucose 294 H 310 H
POC Glucose 291 H
06/07/23 06/07/23 06/07/23
21:36 21:37 22:26
Glucose 268 H
POC Glucose 249 H 216 H
06/08/23 06/08/23 06/08/23
00:00 00:04 01:06
Glucose Cancelled
POC Glucose 176 H 189 H
06/08/23 06/08/23 06/08/23
02:10 02:11 03:09
Glucose 172 H
POC Glucose 169 H 156 H
06/08/23 06/08/23 06/08/23
05:43 05:45 08:23
Glucose 176 H
POC Glucose 183 H 244 H
06/08/23 06/08/23 06/08/23
10:00 11:49 14:00
Glucose Cancelled Cancelled
POC Glucose 281 H
06/08/23
18:00
Glucose Cancelled
POC Glucose
Patient Education
--- NOTE | 2023-06-08 13:04 | CM ---
Addendum entered by Tayla Wei RN 06/08/23 16:15:
CM Consult: Hospice
Spoke with son Washington; offered to explain hospice philosophy & benefits. Washington says that his mother and the family are willing to speak with the hospice nurse for more information about hospice.
Washington provided Niki's cell phone # [phone].
Spoke with Elida, Admitting to add Niki's cell to chart.
Referral to [facility].
Notified by nurse Arianna and Dr Padilla that family elected to have comfort care.
Plan comfort care.
Original Note:
Patient from [facility] with Dx Severe Sepsis, Pneumonia, Acute Hypoxic Respiratory Failure, Acute Pulmonary Embolism, Severe dementia, Failure to thrive. O2 8L. Per nurse; patient unresponsive.
Met with patient, Niki, son Yung, other sons and DIL;
the patient has been residing at [facility] about one month. He initially went there for rehab and then stayed in LTC. The family says he was ambulatory when he was admitted to SNF. He was not given much rehab and his mobility had
deteriorated since then. They are very unhappy with the care at that facility and will not allow him to return there.
The and son says that they were told by someone that patient may need to be in comfort care and would like to speak with the doctor about it---> message sent to Dr Padilla.
Phone call to Stuart Galindo [place] Pt; the patient required total care, assist of 2 for transfers (no angie lift) and was dependant. He recently completed PT/OT in rehab, and was there in LTC and is on an MA bed hold.
Plan TBD.
--- NOTE | 2023-06-08 13:11 | W.PN.ID1 ---
Date of Service
Date of Service: June 08, 2023
Today's Communication
Continue antibiotics.
Assessment / Plan
PE (B/L)
Suspected aspiration pneumonia
Leukocytosis
- remains elevated
Hypernatremia
Lactic acidosis
Transaminitis
Advanced dementia
Chronic pain syndrome
Hx Right ear basal cell carcinoma
DM
Hx CVA
Anxiety
Hyponatremia
Recommendations:
Continue with empiric cefepime / vancomycin / metronidazole for the present.
Fluid repletion.
Monitor white count and temperature curve.
Monitor Vanco levels.
Aspiration precautions.
Follow cultures.
Prognosis overall extremely guarded.
Chief Complaint
-: Leukocytosis and Pneumonia
Subjective / Review of Systems
Patient seen and examined. Overnight required initiation of BiPAP.
Vital Signs / Physical Exam
Vital Signs
Vital Signs
Temp Pulse Resp BP Pulse Ox
99.7 F 126 30 140/88 100
06/08/23 11:00 06/08/23 06:15 06/08/23 06:15 06/08/23 06:00 06/08/23 06:15
Physical Exam
Constitutional: Comfortable, Chronically Ill and Non-toxic
Cardiovascular: S1/S2; Negative S3/S4
Pulmonary: Rhonchi (scattered) and Other (Bipap in place)
Gastrointestinal: Soft, Non Distended, Normal Bowel Sounds, No Rebound and No Guarding
Extremities: Edema; Negative Cyanosis or Erythema
Neurological: Other (Eyes open. Does not follow commands.)
Objective Data
Lab Data
Lab Results
06/08/23 02:11
06/08/23 18:00
APTT 65.1 Sec (23.4-35.0) H 06/08/23 02:11
Estimated Creat Clear Cancelled 06/08/23 18:00
Lactic Acid 1.5 mmol/L (0.7-2.0) 06/07/23 18:30
Total Bilirubin 0.7 mg/dl (0.2-1.3) 06/08/23 05:45
AST 104 U/L (17-59) H 06/08/23 05:45
ALT 130 U/L (0-50) H 06/08/23 05:45
Alkaline Phosphatase 120 U/L (38-126) 06/08/23 05:45
Most recent labs reviewed.
Chest X-Ray: Image Reviewed and Report Reviewed
Micro Results:
06/07/23 08:18 Blood Culture - Preliminary
Blood/Venous No Growth in 24 hours- Final report to follow
06/07/23 07:46 Blood Culture - Preliminary
Blood/Venous No Growth in 24 hours- Final report to follow
06/07/23 15:50 Nasal Screen MRSA (PCR) - Final
Nose Staph aureus MRSA
06/07/23 07:46 Influenza Types A & B (ADONIS) - Final
Nasal Swab Negative for Influenza A & B, NAAT
Negative results must be combined with clinical observations
and patient history.
Nucleic Acid Amplification test (NAAT)performed on the
[employer] platform.
Imaging:
06/08/2023 CXR (portable): Left lung is clear. Airspace consolidation is seen at the right lung base consistent with pneumonia. No large pleural effusion or pneumothorax seen.
06/07/23 CT chest: Positive for thromboembolus in the right upper and lower lobe segmental and subsegmental branches. Infiltrate is seen in the right lower lobe. Mild infiltrate noted in the left lower lobe. There is secretions and mucous plugging
throughout the right middle and lower lobe bronchi.
[2023-06-08 14:31] LABS: APTT 57.6 Sec (23.4-35.0)
[2023-06-08] MEDS: HEPARIN 5400 UNITS IV (15:04)
[2023-06-08 15:07] LABS: Blood Urea Nitrogen 43 mg/dl (9-20); Calcium 9.2 mg/dl (8.4-10.2); Carbon Dioxide 31 mmol/L (22-30); Chloride 112 mmol/L (98-107); Estimated Creatinine Clearance 71 ml/min; Glucose 353 mg/dl (70-99); Potassium 3.8 mmol/L (3.5-5.1); Sodium 155 mmol/L (135-145); eGFR > 60.00
--- NOTE | 2023-06-08 15:57 | W.PN.HOSP.TC ---
Today's Communication/Plan
-
Comfort care to start now
Assessment / Plan
Assessment / Plan
Physical Exam
General: Appears Chronically Ill
HEENT: Normocephalic, Moist mucous membranes and Other (Dry Mucous Membranes)
Respiratory: Labored respirations. On BiPAP.
Cardiac: S1/S2 and Tachycardia
GI: Soft, Non Tender and Hypoactive Bowel Sounds.
Musculoskeletal: No Cyanosis and No Edema
Skin: Warm and Dry
Neuro: Other (Nonverbal. Not following commands.)
Psych: Confused and Apparent Dementia

Assessment/Plan
MRSA Colonization
Severe Sepsis
Pneumonia
Lactic Acidosis - RESOLVED
Tachycardia
Elevated Troponin
Leukocytosis
Acute Hypoxic Respiratory Failure
Acute Pulmonary Embolism in the RUL and RLL
Severe Hypernatremia
Elevated Transaminases
Severe dementia
Failure to thrive
Chronic pain syndrome
Basal Cell Carcinoma of Right Ear s/p Surgical Excision in 08/2017
Insulin dependant Type 2 diabetes mellitus
History of Stroke
Anxiety
History of Hyponatremia
Decubitus ulcer of sacral region
Pressure ulcer of right hip
Today, on June 08, 2023, I spoke extensively to patient's family members, including patient's and patient's children, inside the patient's room. I also spoke to the on-call boat wrapper and on-call campaign specialist and we all agreed that patient
has a very poor prognosis. We had an extensive discussion about the patient's very poor prognosis. I discussed comfort care and explained in detail what that would mean, including stopping patient's routine non-comfort oriented medications and
starting comfort medications including Morphine. Family indicated that they would decide and let the nurse know when they want to change patient's orders to be comfort care. Nurse Arianna Ruth Texted me at 4:13 pm saying that the patient's
family have stated to her that they want comfort care. Will start comfort care orders now.
Total time spent today on reviewing patient's chart, seeing and examining the patient, documentation, speaking with other specialists, speaking with patient's family, and reviewing and placing orders was 75 minutes.
Anticipated Discharge: > 48 hours
Subjective/Interval History
-
Date of Service: June 08, 2023
Patient was seen and examined. He remains on BiPAP and unresponsive.
Objective Data
-
Labs:
Laboratory Results
06/08/23 06/08/23 06/08/23
05:45 10:00 14:00
APTT
Sodium 153 H Cancelled Cancelled
Potassium 3.7 Cancelled Cancelled
Chloride 120 H Cancelled Cancelled
Carbon Dioxide 29 Cancelled Cancelled
BUN 30 H Cancelled Cancelled
Creatinine 0.7 Cancelled Cancelled
Glucose 176 H Cancelled Cancelled
Calcium 9.2 Cancelled Cancelled
Total Bilirubin 0.7
AST 104 H
ALT 130 H
Alkaline Phosphatase 120
06/08/23 06/08/23 06/08/23
14:12 14:37 18:00
APTT 57.6 H
Sodium Cancelled 155 H Cancelled
Potassium Cancelled 3.8 Cancelled
Chloride Cancelled 112 H Cancelled
Carbon Dioxide Cancelled 31 H Cancelled
BUN Cancelled 43 H Cancelled
Creatinine Cancelled 0.9 Cancelled
Glucose Cancelled 353 H Cancelled
Calcium Cancelled 9.2 Cancelled
Total Bilirubin
AST
ALT
Alkaline Phosphatase
Vital Signs:
Vital Signs
Temp Pulse Resp BP Pulse Ox
99.7 F 126 30 140/88 100
06/08/23 11:00 06/08/23 06:15 06/08/23 06:15 06/08/23 06:00 06/08/23 06:15
I&O
06/07/23 06/08/23 06/09/23
06:59 06:59 06:59
Intake Total 950 / 950
Balance 950 / 950
[2023-06-08] MEDS: MORPHINE SULFATE 2 MG IV (17:18)
--- NOTE | 2023-06-08 17:50 | W.PN.UPDATE ---
Update Note
Progress Note Update
noted that pt is comfort care
nephro consult cancelled
--- NOTE | 2023-06-08 18:07 | PTCARENOTE ---
pt placed on comfort care at request of family. iv fluids and heparin stopped. bipap removed and pt placed on 6 liters nasal cannula. breaths shallow and labored. 2 mg morphine given with improvement in labored breathing. family at bedside.
--- NOTE | 2023-06-08 18:25 | PTCARENOTE ---
pt without heartbeat or respirations. dr capone notified.family at bedside.
--- NOTE | 2023-06-08 18:54 | W.PN.DEATH ---
Pronouncement of
-
Called to see patient to pronounce.
No spontaneous heart tones or respirations noted.
Patient not responsive to verbal stimuli.
Patient is pronounced .
Time of : 18:25
Date of : 06/08/23
Cause of : Sepsis.
Family Notified: Yes
--- NOTE | 2023-06-08 21:16 | W.DCSUMMARY ---
Discharge Summary
Discharge Data
Date of Admission: 06/07/23
Date of Discharge: 06/08/23
Total time spent discharging patient (in min): 40
-
Pending Results: No
Hospital Course
73 y/o male, from [facility], with past medical history of Severe dementia, Failure to thrive, Chronic pain syndrome, Basal Cell Carcinoma of Right Ear status post Surgical Excision in 08/2017, Insulin dependant Type 2 diabetes mellitus, stroke,
Anxiety, Hyponatremia, Decubitus ulcer of sacral region, stage 1, Pressure ulcer of right hip presented with fever and tachycardia as per patient's family. He was noted have had dementia, but was noted to be even less interactive at the time of
presentation. His Ativan and Risperdal were being decreased at the outside facility where he is from. Patient was nonverbal so history was not able to be obtained from him. Patient was admitted to the IMU with severe sepsis secondary to pneumonia,
significant hypernatremia and a new finding of pulmonary embolism. Patient was started on broad spectrum antibiotics and Heparin Drip. Echocardiogram showed an ejection fraction of 25%, among many other significant findings (please see full
echocardiogram report for additional details). Pulmonary, Cardiology, Infectious Disease and Nephrology were all consulted. Patient had a rapid response on the evening of June 07, 2023 due to worsening respiratory status, and agonal breathing, he
was placed on BiPAP and Morphine was ordered -- patient's at that time confirmed that patient was Do Not Resuscitate/DO Not Intubate status. Patient was also started on Insulin Drip. His prognosis was noted to be very poor, and case was
discussed with patient's family, and his poor prognosis was explained in detail. Comfort care was also explained to the patient's family in detail, including details of adjustments that would be made to patient's orders if they chose to have patient
be placed under comfort care. Given patient's poor prognosis, and the fact that patient appeared to be uncomfortable in his current state, patient's family decided to have patient changed to comfort care. Patient on June 08, 2023.
Discharge Plan
-
Patient Disposition:
Date/Time
Date/Time: 06/08/23 18:25
Discharge Date and Time
Discharge Date/Time: 06/08/23 18:45
Print Language: YI
--- NOTE | 2023-06-08 21:40 | PTCARENOTE ---
Post mortem care given and pt taken to the morgue.
== END 2023-06-08 18:45 | disposition expired | DRG 871 ==
LOC: IMU 09:58
PROVIDERS: Internal Medicine; Nurse Practitioner; ADMITTING PHYSICIAN Hospitalist; CONSULT PHYSICIAN Internal Medicine; EMERGENCY PHYSICIAN Emergency Medicine; FAMILY PHYSICIAN Internal Medicine; OTHER PHYSICIAN Internal Medicine Cardiovascular Disease; OTHER PHYSICIAN Internal Medicine Infectious Disease
DX: A41.89 Other specified sepsis (principal); I26.99 Other pulmonary embolism without acute cor pulmonale; J96.01 Acute respiratory failure with hypoxia; J69.0 Pneumonitis due to inhalation of food and vomit; Z68.1 Body mass index [BMI] 19.9 or less, adult; E87.20 Acidosis, unspecified; E87.0 Hyperosmolality and hypernatremia; F03.C4 Unspecified dementia, severe, with anxiety; E87.1 Hypo-osmolality and hyponatremia; I5A Non-ischemic myocardial injury (non-traumatic); R62.7 Adult failure to thrive; R65.20 Severe sepsis without septic shock; Z66 Do not resuscitate; Z11.52 Encounter for screening for COVID-19; Z74.01 Bed confinement status; G89.4 Chronic pain syndrome; Z87.891 Personal history of nicotine dependence; Z85.828 Personal history of other malignant neoplasm of skin; E11.65 Type 2 diabetes mellitus with hyperglycemia; L89.219 Pressure ulcer of right hip, unspecified stage
CPT/HCPCS: 36600; 51701; 71045; 71275; 74018; 76700; 80048; 80053; 80202; 81003; 81015; 82010; 82140; 82607; 82805; 82962; 83036; 83605; 83735; 84443; 84484; 85025; 85027; 85730; 87040; 87502; 87641; 87811; 93005; 93306; 94660; 96361; 96365; 96366; 96367; 96375; 99285; Q9950; Q9967